=== PATIENT | male | born 1945 | race Caucasian/White ===

== ENCOUNTER → 2019-08-21 | Outpatient (CLI) | payer MEDICARE, SELFPAY | PROVIDERS: Family Provider Internal Medicine; Visit Provider Internal Medicine Hematology & Oncology | DX: Z85.46 Personal history of malignant neoplasm of prostate (principal); C68.0 Malignant neoplasm of urethra; J43.9 Emphysema, unspecified; M19.012 Primary osteoarthritis, left shoulder; M19.011 Primary osteoarthritis, right shoulder; Z90.2 Acquired absence of lung [part of]; Z79.899 Other long term (current) drug therapy; Z92.23 Personal history of estrogen therapy | CPT/HCPCS: 99213 ==

== ENCOUNTER → 2019-10-28 08:43 | Outpatient (BNVA) | payer MEDICARE, SELFPAY | PROVIDERS: Family Provider Internal Medicine; PCP Internal Medicine; Visit Provider Urology | DX: N32.89 Other specified disorders of bladder (principal); N39.9 Disorder of urinary system, unspecified; C67.2 Malignant neoplasm of lateral wall of bladder; C61 Malignant neoplasm of prostate | CPT/HCPCS: 81001 ==

== ENCOUNTER 2019-11-18 11:10 | Outpatient (CLI) | payer MEDICARE, SELFPAY ==
[2019-11-18 11:28] LABS: Basophils % 0.6 %; Eosinophils # 0.2 10^3/uL (0.0-0.8); Hematocrit 45.2 % (42.0-52.0); Hemoglobin 15.2 g/dL (11.7-16.6); Lymphocytes # 1.6 10^3/uL (0.8-4.8); Lymphocytes % 25.7 %; Mean Corpuscular HGB Conc 33.6 g/dL (30.0-36.0); Mean Corpuscular Hemoglobin 30.2 pg (28.0-34.0); Mean Corpuscular Volume 89.9 fL (80-94); Mean Platelet Volume 10.2 fL (7.4-10.4); Monocytes # 0.6 10^3/uL (0.2-0.9); Monocytes % 9.8 %; Neutrophils # 3.8 10^3/uL (1.8-7.7); Neutrophils % 60.6 %; Nucleated Red Blood Cells % 0 %; Platelet Count 224 10^3/cmm (130-400); Red Blood Count 5.03 10^6/uL (4.1-5.3); Red Cell Distribution Width 11.7 % (12.1-15.1); White Blood Count 6.3 10^3/uL (4.0-10.0)
[2019-11-18 11:51] LABS: Prostate Specific Antigen 0.39 ng/mL (0-4)
[2019-11-18 12:02] LABS: Alanine Aminotransferase 32 U/L (0-41); Albumin Level 4.3 g/dL (3.5-5.2); Alkaline Phosphatase 102 IU/L (40-130); Anion Gap 16.5 (5-19); Aspartate Amino Transferase 27 U/L (0-40); Blood Urea Nitrogen 16 mg/dL (8-23); Carbon Dioxide 25 mmol/L (22-29); Chloride 103 mmol/L (98-107); Glucose 105 mg/dL (65-115); Potassium 4.5 mmol/L (3.5-5.1); Sodium 140 mmol/L (136-145); Total Bilirubin 0.4 mg/dL (0.15-1.2); Total Protein 6.3 g/dL (6.6-8.7)
--- NOTE | 2019-11-18 15:30 | ONC FU_ITS ---
Dr. Robertson follow up note Patient: Kwaku Rivero Unit #: [id number]: [id number] Dicatated By: Guillermina Robertson M.D.Date of Visit:Nov 18, 2019 Onc Med Follow-up/Prog Note History of Present Illness: Mr. Kwaku Rivero, is a 74-year-old gentleman with history of prostate cancer diagnosed about 9 years ago at that time he underwent brachytherapy with excellent response and his last PSA was checked in December 2016 and it was normal around 2. and recently found to have multiple bilateral pulmonary nodules per CTPET, , for which he was evaluated by Dr. Batista and patient underwent left upper lobe lung resection on 11/27/2017 and final pathology report showed infiltrating adenocarcinoma consistent with prostate primary. had agreed on plan of treatment including combined androgen androgen deprivation with Casodex and Zoladex. Did not take Zoladex because of is concerned about cardiac related toxicity due to Zoladex. but later on , on 08/24 agreed to try monthly dose of zoladex and cadodex on trial basis , now tolerating well . Patient denies any testosterone supplements. CT scan of chest done on 07/11/2018 showed a right apical mass lesion with irregular margins measuring 1.5 x 1.9 x 2.2 cm and another nodule slightly posterior and medial to this lesion measured 1.1 and a cavitary lesion persist in the superior segment of left upper lobe measure 1.2 x 2.4 cm Follow-up CT scanning of chest done on 10/12/2018 showed stable left suprahilar opacity measuring 1.5 x 1.8 x 2.5 cm is unchanged and left upper lobe nodule is also unchanged measuring 1.9 x 1.1 cm whereas previously described right upper lobe nodules have improved and are small in size. No hilar or mediastinal lymphadenopathy, small esophageal hiatal hernia. Mr. Rivero has continued the Zoladex. His last Zoladex injection was 01/30/2019. He did have follow-up bone scan on 05/07/2019. He reported no evidence of metastatic disease to the bony skeleton. 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 Follow-up CT of the chest abdomen and pelvis with contrast was also obtained on 05/07/2019. There was further decreased in the size and density of the previous metastatic nodules in the right apex of the lung. Stable postoperative changes the left upper lobe lung rate no evidence of new foci or pulmonary metastatic disease. He has chronic emphysema. Resolved superior segment left lower lobe previous editorial lesion or infected bullous cavity. He has arteriosclerotic cardiovascular changes as well. CT of the abdomen and pelvis reported right posterior lateral bladder wall mass suspected urological evaluation suggested; prior radiation to the prostate gland; diverticulosis of the colon, most pronounced in the sigmoid region without radiographic evidence of diverticulitis; or chills carotid peripheral vascular changes. The area in the bladder is arising from the right posterior lateral wall of the bladder is suggestion of a foci intralumenal nodule measuring about 1.5 cm in diameter. The remainder of the urinary bladder is normal. Radiation seeds were noted within the prostate gland. with Zoladex injection He states overall he is feeling so bad due to hot sweats/flashes that are getting worse area he's had significant fatigue. He states that it's hard for him to do his normal daily activities as well as working in the [employer] shows such as he does. He states he is on the go constantly but is having more trouble with fatigue.. However his major complaint now is horrible hot flashes and sweating . He feels that this is impacting his quality of life. . He's had no urinary problems he denies any hematuria. 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 Jerome, urologist As far as prostrate cancer is concern, CT PET scan done on 08/17/2019 showed no evidence of recurrent or residual malignancy, in right apex nodule measuring roughly 7 mm is FDG negative. His left lung scarring from the wedge resection Patient wants to continue to hold off Zoladex, as he is feeling better since he is off Zoladex , feeling more energetic since he is off Zoladex. And recently underwent cystoscopy for bladder mass which showed low-grade papillary urothelial carcinoma, it was excised completely and now being treated with intravesical therapy with mitomycin and being followed by urology. Came for follow-up, denies any specific complaint except occasionally hot flashes otherwise no fever or chills, no nausea or vomiting no diarrhea constipation, appetite is good, gaining some weight. And feeling better since of ADT Medications: B Complex 1 Tablet Oral daily, Oevg-Bwtt-Cfesuy 2 Capsule Oral daily, Lipitor 1 (40 mg) Tablet Oral daily, Multivitamin Adult 1 Tablet Oral daily, plexus 1 Capsule daily Allergies: No Known Allergies. Review of Systems: Constitutional - He has been having hot flashes. He also has fatigue and low energy, ENMT - No sinus congestion/drainage. No mouth sores. No sore throat or difficulty swallowing, Hematologic/Lymphatic - No abnormal bruising or bleeding, Respiratory - No dyspnea on exertion, chest pain, cough or hemoptysis, Cardiovascular - No anginal chest pain, palpitations or orthopnea, Gastrointestinal - No nausea, vomiting, diarrhea, GI bleeding, or constipation. No change in bowel habits, no heartburn or early satiety, Genitourinary (M) - No hematuria, dysuria, increased frequency, urgency, hesitancy or incontinence, Musculoskeletal - No joint pain, swelling or redness. No decreased range of motion, Neurologic - No headache or dizziness. No numbness/paresthesias or other focal neurologic symptoms, Psychiatric - No anxiety or depression. No insomnia. Vital Signs: Performed on Nov 18, 2019 13:27 Height - 66.00 in Weight - 200.6 lbs (HIGH) BSA - 2.00 sq.m BMI - 32.38 (HIGH) Temperature - 98.0 F (LOW) Pulse - 82 /min Respiration - 18 /min BP - 138/85 mm(hg) O2 Sat - 96 % Pain - 0 Performance Status: 0 - Fully active, able to carry on all predisease activities without restrictions. (ECOG) Physical Examination: ENMT - No oral exudates, ulcers, masses, thrush or mucositis. Oropharynx clear. Tongue normal, Respiratory - Lungs are clear to auscultation without rhonchi or wheezing, Cardiovascular - Regular rate and rhythm of heart, Abdomen - Non-tender, non-distended, Good bowel sounds. No guarding or rebound tenderness. No pulsatile masses, Extremities - no edema. Lab/Imaging: Test performed on Aug 21, 2019 09:28 Sodium 142 mmol/L Testosterone, Total 2.5 ng/dL Potassium 4.4 mmol/L Chloride 104 mmol/L CO2 26 mmol/L Anion Gap 16.4 BUN 15 mg/dL Creatinine 1.0 mg/dL Cr Clearance (Est) 81.7400 mL/min Glucose 115 mg/dl Calcium 9.9 mg/dL Protein, Total 6.1 g/dL Albumin 4.9 g/dL Globulin 1.2 gm/dL Bilirubin, Total 0.5 mg/dL ALT (SGPT) 26 U/L AST (SGOT) 24 U/L Alkaline Phosphatase 90 U/L WBC 5.8 10 3/uL RBC 4.89 10 6/uL HGB 14.9 g/dL HCT 44.5 % MCV 91.0 fl MCH 30.5 pg MCHC 33.5 g/dl RDW 12.0 % Platelet Count 224 10 3/cmm MPV 10.4 fl Neutrophils 3.5 10 3/uL Lymphocytes 1.5 10 3/uL Monocytes 0.6 10 3/uL Eosinophils 0.1 10 3/uL Basophils 0.0 10 3/uL Neutrophil % 60.1 % Lymphocyte % 26.1 % Monocyte % 10.7 % Eosinophil % 1.9 % Basophils % 0.7 % PSA 0.28 ng/mL Impression: Metastatic prostrate cancer involving bilateral lungs status post left thoracoscopy with wedge resection of left upper lobe pulmonary nodule on 11/27/2017 , history of prostate cancer diagnosed about 7 years ago status post brachytherapy #2 left thoracic vent placement skin due to persistent air leak discussed with the patient and his his disease status. 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 Treatment options including combined androgen blockade with Zoladex and bicalutamide versus observation. Both were discussed in detail and the patient opted for combined androgen blockade. All the side effect and possible benefit associated with Zoladex and bicalutamide were discussed in detail and patient expressed understanding and accepted the treatment. He Started on bicalutamide on 01/01/2018. Patient was advised not to take testosterone, in any form including in multivitamins. patient was reluctant to start Zoladex and his has done research. He did not want to pursue Zoladex initially to potential side effects especially fatigue. He was agreeable to continue the Casodex. He wants to complete Casodex to a total of 30 days, then wait 1 month and recheck labs and go from there . He tolerated the Casodex well and later on 08/24/18 agreed to try monthly dose of Zoladex , Repeat CT scan of chest done on 07/11/2018 showed right apical mass lesion with irregular margins now measures 1.5 x 1.9 x 2.2 cm compared to 1.4 x 1.4 x 1.3 on 05/03/2017 And nodule slightly posterior and medial to this lesion measured 1.1 compared to 1 cm prior exam A cavitary lesion persists in the superior Segment left lower lobe, adjacent to the major fissure now measures 1.2 x 2.4 cm compared to 1.3 x 1.6 cm on prior exam, no new pulmonary nodule seen next CT abdomen pelvis shows no evidence of neoplastic process in abdominal pelvis Bone scan shows no evidence of metastatic disease he was referred to radiation oncology for evaluation for role of SB RT in metastatic lung disease, patient was seen by Dr. Vo and due to location of the pulmonary nodule, SB RT was not offered due to risks involved. Patient underwent follow-up CT scan of chest done on 10/12/2018 which showed stable left suprahilar nodule and cavitary lesion in this suprasegmental left lower lobe along the fissure is unchanged too, whereas previously described pulmonary nodules in the right upper lobe at the apex have improved and also smaller in size. No mediastinal or hilar lymphadenopathy. Small esophageal hiatal hernia. Mr. Rivero has continued the Zoladex. His last Zoladex injection was 01/30/2019. He did have follow-up bone scan on 05/07/2019. He reported no evidence of metastatic disease to the bony skeleton. 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 Follow-up CT of the chest abdomen and pelvis with contrast was also obtained on 05/07/2019. There was further decreased in the size and density of the previous metastatic nodules in the right apex of the lung. Stable postoperative changes the left upper lobe lung rate no evidence of new foci or pulmonary metastatic disease. He has chronic emphysema. Resolved superior segment left lower lobe previous editorial lesion or infected bullous cavity. He has arteriosclerotic cardiovascular changes as well. CT of the abdomen and pelvis reported right posterior lateral bladder wall mass suspected urological evaluation suggested; prior radiation to the prostate gland; diverticulosis of the colon, most pronounced in the sigmoid region without radiographic evidence of diverticulitis; or chills carotid peripheral vascular changes. The area in the bladder is arising from the right posterior lateral wall of the bladder is suggestion of a foci intralumenal nodule measuring about 1.5 cm in diameter. The remainder of the urinary bladder is normal. Ration seeds were noted within the prostate gland. Plan: Discussed with patient regarding his labs white blood count 6.3 hemoglobin 15.2 crit 45.2 platelets 224,000 CMP within normal limits PSA 0.39 compared to 0.28 on 08/21/2019 Clinically, patient is doing well with no signs symptoms suggestive of recurrence of disease. But his follow-up lab shows increase in PSA value and at this point, we'll continue to monitor and he will return to clinic in 3 months with PSA and testosterone level and PSA continued to go up, we'll consider radiological workup to assess disease status. Signed By: Guillermina Robertson M.D. <<Signature on File>>
== END 2019-11-18 11:11 | disposition home or self-care (01) ==
LOC: ONCMED 11:10
PROVIDERS: Family Provider Internal Medicine; PCP Internal Medicine; Visit Provider Internal Medicine Hematology & Oncology
DX: C61 Malignant neoplasm of prostate (principal); C78.02 Secondary malignant neoplasm of left lung; C78.01 Secondary malignant neoplasm of right lung; R97.21 Rising PSA following treatment for malignant neoplasm of prostate; K44.9 Diaphragmatic hernia without obstruction or gangrene; Z79.899 Other long term (current) drug therapy; Z92.3 Personal history of irradiation; Z90.2 Acquired absence of lung [part of]; Z85.51 Personal history of malignant neoplasm of bladder; Z92.23 Personal history of estrogen therapy
CPT/HCPCS: 80053; 84153; 85025; G0463

== ENCOUNTER 2020-02-24 14:17 | Outpatient (CLI) | payer MEDICARE, SELFPAY ==
[2020-02-24 15:17] LABS: Prostate Specific Antigen 1.71 ng/mL (0-4)
[2020-02-24 16:21] LABS: Testosterone Total 139.5 ng/dL (193-740)
--- NOTE | 2020-02-24 16:47 | ONC FU_ITS ---
Dr. Robertson follow up note Patient: Kwaku Rivero Unit #: [id number]: [id number] Dicatated By: Guillermina Robertson M.D.Date of Visit:Feb 24, 2020 Onc Med Follow-up/Prog Note History of Present Illness: Mr. Kwaku Rivero, is a 75-year-old gentleman with history of prostate cancer diagnosed about 9 years ago at that time he underwent brachytherapy with excellent response and his last PSA was checked in December 2016 and it was normal around 2. and recently found to have multiple bilateral pulmonary nodules per CTPET, , for which he was evaluated by Dr. Batista and patient underwent left upper lobe lung resection on 11/27/2017 and final pathology report showed infiltrating adenocarcinoma consistent with prostate primary. had agreed on plan of treatment including combined androgen androgen deprivation with Casodex and Zoladex. Did not take Zoladex because of is concerned about cardiac related toxicity due to Zoladex. but later on , on 08/24 agreed to try monthly dose of zoladex and cadodex on trial basis , now tolerating well . Patient denies any testosterone supplements. CT scan of chest done on 07/11/2018 showed a right apical mass lesion with irregular margins measuring 1.5 x 1.9 x 2.2 cm and another nodule slightly posterior and medial to this lesion measured 1.1 and a cavitary lesion persist in the superior segment of left upper lobe measure 1.2 x 2.4 cm Follow-up CT scanning of chest done on 10/12/2018 showed stable left suprahilar opacity measuring 1.5 x 1.8 x 2.5 cm is unchanged and left upper lobe nodule is also unchanged measuring 1.9 x 1.1 cm whereas previously described right upper lobe nodules have improved and are small in size. No hilar or mediastinal lymphadenopathy, small esophageal hiatal hernia. Mr. Rivero has continued the Zoladex. His last Zoladex injection was 01/30/2019. He did have follow-up bone scan on 05/07/2019. He reported no evidence of metastatic disease to the bony skeleton. 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 Follow-up CT of the chest abdomen and pelvis with contrast was also obtained on 05/07/2019. There was further decreased in the size and density of the previous metastatic nodules in the right apex of the lung. Stable postoperative changes the left upper lobe lung rate no evidence of new foci or pulmonary metastatic disease. He has chronic emphysema. Resolved superior segment left lower lobe previous editorial lesion or infected bullous cavity. He has arteriosclerotic cardiovascular changes as well. CT of the abdomen and pelvis reported right posterior lateral bladder wall mass suspected urological evaluation suggested; prior radiation to the prostate gland; diverticulosis of the colon, most pronounced in the sigmoid region without radiographic evidence of diverticulitis; or chills carotid peripheral vascular changes. The area in the bladder is arising from the right posterior lateral wall of the bladder is suggestion of a foci intralumenal nodule measuring about 1.5 cm in diameter. The remainder of the urinary bladder is normal. Radiation seeds were noted within the prostate gland. with Zoladex injection He states overall he is feeling so bad due to hot sweats/flashes that are getting worse area he's had significant fatigue. 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 He states he is on the go constantly but is having more trouble with fatigue.. However his major complaint now is horrible hot flashes and sweating . He feels that this is impacting his quality of life. . He's had no urinary problems he denies any hematuria. 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 Jerome, urologist As far as prostrate cancer is concern, CT PET scan done on 08/17/2019 showed no evidence of recurrent or residual malignancy, in right apex nodule measuring roughly 7 mm is FDG negative. His left lung scarring from the wedge resection Patient wants to continue to hold off Zoladex, as he is feeling better since he is off Zoladex , feeling more energetic since he is off Zoladex. And recently underwent cystoscopy for bladder mass which showed low-grade papillary urothelial carcinoma, it was excised completely and now being treated with intravesical therapy with mitomycin and being followed by urology. Came for follow-up, denies any specific complaints except generalized weakness and fatigue, no dysuria or hematuria, no pelvic pain, no new bony pains, no hemoptysis or hematemesis. Patient is gaining weight. Recently has seen his primary care physician in [place] . Medications: Utxg-Klmo-Njzaeq 2 Capsule Oral daily, Lipitor 1 (40 mg) Tablet Oral daily, Multivitamin Adult 1 Tablet Oral daily, plexus 1 Capsule daily Allergies: No Known Allergies. Review of Systems: Constitutional - Appetite is good and weight stable. Energy level poor. Positive for hot flashes, night sweats. No fever, chills, ENMT - No sinus congestion/drainage. No mouth sores. No sore throat or difficulty swallowing, Hematologic/Lymphatic - No abnormal bruising or bleeding, Respiratory - No dyspnea on exertion, chest pain, cough or hemoptysis, Cardiovascular - No anginal chest pain, palpitations or orthopnea, Gastrointestinal - No nausea, vomiting, diarrhea, GI bleeding, or constipation. No change in bowel habits, no heartburn or early satiety, Genitourinary (M) - No hematuria, dysuria, increased frequency, urgency, hesitancy or incontinence, Musculoskeletal - No joint pain, swelling or redness. No decreased range of motion, Neurologic - No headache or dizziness. No numbness/paresthesias or other focal neurologic symptoms, Psychiatric - No anxiety or depression. No insomnia. Vital Signs: Performed on Feb 24, 2020 16:02 Height - 66.00 in Weight - 202.4 lbs (HIGH) BSA - 2.01 sq.m BMI - 32.67 (HIGH) Temperature - 97.8 F (LOW) Pulse - 75 /min Respiration - 16 /min BP - 140/89 mm(hg) O2 Sat - 95 % (LOW) Pain - 0 Performance Status: 0 - Fully active, able to carry on all predisease activities without restrictions. (ECOG) Physical Examination: ENMT - no mouth sores, no thrush, Respiratory - Lungs are clear, Cardiovascular - Regular rate and rhythm of heart, Abdomen - soft, bowel sounds present, Extremities - no visible edema. Lab/Imaging: Test performed on Nov 18, 2019 11:20 Sodium 140 mmol/L Potassium 4.5 mmol/L Chloride 103 mmol/L CO2 25 mmol/L Anion Gap 16.5 BUN 16 mg/dL Creatinine 1.1 mg/dL Cr Clearance (Est) 74.68 mL/min Glucose 105 mg/dL Calcium 10.0 mg/dL Protein, Total 6.3 g/dL Albumin 4.3 g/dL Globulin 2.0 g/dL Bilirubin, Total 0.4 mg/dL ALT (SGPT) 32 U/L AST (SGOT) 27 U/L Alkaline Phosphatase 102 IU/L WBC 6.3 10 3/uL RBC 5.03 10 6/uL HGB 15.2 g/dL HCT 45.2 % MCV 89.9 fL MCH 30.2 pg MCHC 33.6 g/dL RDW 11.7 % Platelet Count 224 10 3/cmm MPV 10.2 fL Neutrophils 3.8 10 3/uL Lymphocytes 1.6 10 3/uL Monocytes 0.6 10 3/uL Eosinophils 0.2 10 3/uL Basophils 0.0 10 3/uL Neutrophil % 60.6 % Lymphocyte % 25.7 % Monocyte % 9.8 % Eosinophil % 3.0 % Basophils % 0.6 % PSA 0.39 ng/mL Impression: Metastatic prostrate cancer involving bilateral lungs status post left thoracoscopy with wedge resection of left upper lobe pulmonary nodule on 11/27/2017 , history of prostate cancer diagnosed about 7 years ago status post brachytherapy #2 left thoracic vent placement skin due to persistent air leak discussed with the patient and his his disease status. 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 Treatment options including combined androgen blockade with Zoladex and bicalutamide versus observation. Both were discussed in detail and the patient opted for combined androgen blockade. All the side effect and possible benefit associated with Zoladex and bicalutamide were discussed in detail and patient expressed understanding and accepted the treatment. He Started on bicalutamide on 01/01/2018. Patient was advised not to take testosterone, in any form including in multivitamins. patient was reluctant to start Zoladex and his has done research. He did not want to pursue Zoladex initially to potential side effects especially fatigue. He was agreeable to continue the Casodex. He wants to complete Casodex to a total of 30 days, then wait 1 month and recheck labs and go from there . He tolerated the Casodex well and later on 08/24/18 agreed to try monthly dose of Zoladex , Repeat CT scan of chest done on 07/11/2018 showed right apical mass lesion with irregular margins now measures 1.5 x 1.9 x 2.2 cm compared to 1.4 x 1.4 x 1.3 on 05/03/2017 And nodule slightly posterior and medial to this lesion measured 1.1 compared to 1 cm prior exam A cavitary lesion persists in the superior Segment left lower lobe, adjacent to the major fissure now measures 1.2 x 2.4 cm compared to 1.3 x 1.6 cm on prior exam, no new pulmonary nodule seen next CT abdomen pelvis shows no evidence of neoplastic process in abdominal pelvis Bone scan shows no evidence of metastatic disease he was referred to radiation oncology for evaluation for role of SB RT in metastatic lung disease, patient was seen by Dr. Vo and due to location of the pulmonary nodule, SB RT was not offered due to risks involved. Patient underwent follow-up CT scan of chest done on 10/12/2018 which showed stable left suprahilar nodule and cavitary lesion in this suprasegmental left lower lobe along the fissure is unchanged too, whereas previously described pulmonary nodules in the right upper lobe at the apex have improved and also smaller in size. No mediastinal or hilar lymphadenopathy. Small esophageal hiatal hernia. Mr. Rivero has continued the Zoladex. His last Zoladex injection was 01/30/2019. He did have follow-up bone scan on 05/07/2019. He reported no evidence of metastatic disease to the bony skeleton. 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 Follow-up CT of the chest abdomen and pelvis with contrast was also obtained on 05/07/2019. There was further decreased in the size and density of the previous metastatic nodules in the right apex of the lung. Stable postoperative changes the left upper lobe lung rate no evidence of new foci or pulmonary metastatic disease. He has chronic emphysema. Resolved superior segment left lower lobe previous editorial lesion or infected bullous cavity. He has arteriosclerotic cardiovascular changes as well. CT of the abdomen and pelvis reported right posterior lateral bladder wall mass suspected urological evaluation suggested; prior radiation to the prostate gland; diverticulosis of the colon, most pronounced in the sigmoid region without radiographic evidence of diverticulitis; or chills carotid peripheral vascular changes. The area in the bladder is arising from the right posterior lateral wall of the bladder is suggestion of a foci intralumenal nodule measuring about 1.5 cm in diameter. The remainder of the urinary bladder is normal. Ration seeds were noted within the prostate gland. Plan: Discussed with patient regarding his labs PSA 1.71 compared to 0.39 on 11/18/2019 Clinically, patient is doing well, with no new signs symptom suggestive of disease progression but his PSA has gone up significantly since last visit, At this point we will repeat his PSA in one month and if it continued to go up then will consider CT PET scan to assess disease status if it shows radiological evidence of disease progression then will consider starting him on androgen deprivation therapy. Return to clinic in one month with PSA Signed By: Guillermina Robertson M.D. <<Signature on File>>
== END 2020-02-24 14:18 | disposition home or self-care (01) ==
LOC: ONCMED 14:20
PROVIDERS: Family Provider Internal Medicine; PCP Internal Medicine; Visit Provider Internal Medicine Hematology & Oncology
DX: Z08 Encounter for follow-up examination after completed treatment for malignant neoplasm (principal); Z85.46 Personal history of malignant neoplasm of prostate; R97.21 Rising PSA following treatment for malignant neoplasm of prostate; F41.9 Anxiety disorder, unspecified; E78.00 Pure hypercholesterolemia, unspecified; Z92.21 Personal history of antineoplastic chemotherapy; Z79.899 Other long term (current) drug therapy
CPT/HCPCS: 36415; 84153; 84403; 99214

== ENCOUNTER → 2020-02-25 09:00 | Outpatient (BNVA) | payer MEDICARE, SELFPAY | PROVIDERS: Family Provider Internal Medicine; PCP Internal Medicine; Visit Provider Urology | DX: C67.2 Malignant neoplasm of lateral wall of bladder (principal); C61 Malignant neoplasm of prostate | CPT/HCPCS: 81001 ==

== ENCOUNTER 2020-04-06 07:47 | Outpatient (CLI) | payer MEDICARE, SELFPAY ==
--- NOTE | 2020-04-06 16:12 | ONC FU_ITS ---
Dr. Robertson follow up note Patient: Kwaku Rivero Unit #: [id number]: 1945 Dicatated By: Guillermina Robertson M.D.Date of Visit:Apr 06, 2020 Onc Med Follow-up/Prog Note History of Present Illness: Mr. Kwaku Rivero, is a 75-year-old gentleman with history of prostate cancer diagnosed about 9 years ago at that time he underwent brachytherapy with excellent response and his last PSA was checked in December 2016 and it was normal around 2. and recently found to have multiple bilateral pulmonary nodules per CTPET, , for which he was evaluated by Dr. Batista and patient underwent left upper lobe lung resection on 11/27/2017 and final pathology report showed infiltrating adenocarcinoma consistent with prostate primary. had agreed on plan of treatment including combined androgen androgen deprivation with Casodex and Zoladex. but later on decided not to take Zoladex because of his concern about cardiac related toxicity due to Zoladex. but later on , on 08/24 agreed to try monthly dose of zoladex and casodex on trial basis , . Patient denied taking any testosterone supplements. f/u CT scan of chest done on 07/11/2018 showed a right apical mass lesion with irregular margins measuring 1.5 x 1.9 x 2.2 cm and another nodule slightly posterior and medial to this lesion measured 1.1 and a cavitary lesion persist in the superior segment of left upper lobe measure 1.2 x 2.4 cm Follow-up CT scanning of chest done on 10/12/2018 showed stable left suprahilar opacity measuring 1.5 x 1.8 x 2.5 cm is unchanged and left upper lobe nodule is also unchanged measuring 1.9 x 1.1 cm whereas previously described right upper lobe nodules have improved and are small in size. No hilar or mediastinal lymphadenopathy, small esophageal hiatal hernia. Mr. Rivero has continued the Zoladex. His last Zoladex injection was 01/30/2019 He states overall he feels so bad due to hot sweats/flashes that are getting worse area he's had significant fatigue. 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 He states he is on the go constantly but is having more trouble with fatigue.. However his major complaint now is horrible hot flashes and sweating . He feels that this is impacting his quality of life. . He's had no urinary problems he denies any hematuria. And wants to hold Zoladex for the time being He did have follow-up bone scan on 05/07/2019. He reported no evidence of metastatic disease to the bony skeleton. 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 Follow-up CT of the chest abdomen and pelvis with contrast was also obtained on 05/07/2019. There was further decreased in the size and density of the previous metastatic nodules in the right apex of the lung. Stable postoperative changes the left upper lobe lung rate no evidence of new foci or pulmonary metastatic disease. He has chronic emphysema. Resolved superior segment left lower lobe previous editorial lesion or infected bullous cavity. He has arteriosclerotic cardiovascular changes as well. CT of the abdomen and pelvis reported right posterior lateral bladder wall mass suspected urological evaluation suggested; prior radiation to the prostate gland; diverticulosis of the colon, most pronounced in the sigmoid region without radiographic evidence of diverticulitis; or chills carotid peripheral vascular changes. The area in the bladder is arising from the right posterior lateral wall of the bladder is suggestion of a foci intralumenal nodule measuring about 1.5 cm in diameter. The remainder of the urinary bladder is normal. Radiation seeds were noted within the prostate gland. for which on 07/11/2019 he underwent TURBT/biopsy which showed papillary urothelial carcinoma, low-grade, grade 1, no muscle invasion seen patient underwent intravesical therapy with mitomycin on 07/11/2019 and follow-up scheduled in [address] Jerome, urologist As far as prostrate cancer is concern, CT PET scan done on 08/17/2019 showed no evidence of recurrent or residual malignancy, in right apex nodule measuring roughly 7 mm is FDG negative. His left lung scarring from the wedge resection Came for follow-up, denies any specific complaint except off and on hot flashes reason unknown, no fever chills, no diarrhea constipation, no hematuria no dysuria, no new bony pains, no hemoptysis or hematemesis, appetite is good. Medications: [id number] 2 Capsule Oral daily, Lipitor 1 (40 mg) Tablet Oral daily, Multivitamin Adult 1 Tablet Oral daily, plexus 1 Capsule daily Allergies: No Known Allergies. Review of Systems: Constitutional - Appetite is good and weight stable. Energy level poor. Positive for hot flashes, night sweats. No fever, chills, ENMT - No sinus congestion/drainage. No mouth sores. No sore throat or difficulty swallowing, Hematologic/Lymphatic - No abnormal bruising or bleeding, Respiratory - No dyspnea on exertion, chest pain, cough or hemoptysis, Cardiovascular - No anginal chest pain, palpitations or orthopnea, Gastrointestinal - No nausea, vomiting, diarrhea, GI bleeding, or constipation. No change in bowel habits, no heartburn or early satiety, Genitourinary (M) - No hematuria, dysuria, increased frequency, urgency, hesitancy or incontinence, Musculoskeletal - No joint pain, swelling or redness. No decreased range of motion, Neurologic - No headache or dizziness. No numbness/paresthesias or other focal neurologic symptoms, Psychiatric - No anxiety or depression. No insomnia. Vital Signs: Performed on Apr 06, 2020 10:22 Height - 66.00 in Weight - 205.2 lbs (HIGH) BSA - 2.02 sq.m BMI - 33.12 (HIGH) Temperature - 98.0 F (LOW) Pulse - 71 /min Respiration - 18 /min BP - 132/92 mm(hg) O2 Sat - 95 % (LOW) Pain - 0 Performance Status: 0 - Fully active, able to carry on all predisease activities without restrictions. (ECOG) Physical Examination: ENMT - No mouth sores no thrush no jaundice, Respiratory - Lungs are clear, Cardiovascular - Regular rate and rhythm of heart, Abdomen - Soft, bowel sounds present, Extremities - No visible edema. Lab/Imaging: Test performed on Feb 24, 2020 14:30 Testosterone, Total 139.5 ng/dL PSA 1.71 ng/mL Test performed on Nov 18, 2019 11:20 Sodium 140 mmol/L Potassium 4.5 mmol/L Chloride 103 mmol/L CO2 25 mmol/L Anion Gap 16.5 BUN 16 mg/dL Creatinine 1.1 mg/dL Cr Clearance (Est) 74.68 mL/min Glucose 105 mg/dL Calcium 10.0 mg/dL Protein, Total 6.3 g/dL Albumin 4.3 g/dL Globulin 2.0 g/dL Bilirubin, Total 0.4 mg/dL ALT (SGPT) 32 U/L AST (SGOT) 27 U/L Alkaline Phosphatase 102 IU/L WBC 6.3 10 3/uL RBC 5.03 10 6/uL HGB 15.2 g/dL HCT 45.2 % MCV 89.9 fL MCH 30.2 pg MCHC 33.6 g/dL RDW 11.7 % Platelet Count 224 10 3/cmm MPV 10.2 fL Neutrophils 3.8 10 3/uL Lymphocytes 1.6 10 3/uL Monocytes 0.6 10 3/uL Eosinophils 0.2 10 3/uL Basophils 0.0 10 3/uL Neutrophil % 60.6 % Lymphocyte % 25.7 % Monocyte % 9.8 % Eosinophil % 3.0 % Basophils % 0.6 % Impression: Metastatic prostrate cancer involving bilateral lungs status post left thoracoscopy with wedge resection of left upper lobe pulmonary nodule on 11/27/2017 , history of prostate cancer diagnosed about 7 years ago status post brachytherapy #2 left thoracic vent placement skin due to persistent air leak discussed with the patient and his his disease status. 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 Treatment options including combined androgen blockade with Zoladex and bicalutamide versus observation. Both were discussed in detail and the patient opted for combined androgen blockade. All the side effect and possible benefit associated with Zoladex and bicalutamide were discussed in detail and patient expressed understanding and accepted the treatment. He Started on bicalutamide on 01/01/2018. Patient was advised not to take testosterone, in any form including in multivitamins. patient was reluctant to start Zoladex and his has done research. He did not want to pursue Zoladex initially to potential side effects especially fatigue. He was agreeable to continue the Casodex. He wants to complete Casodex to a total of 30 days, then wait 1 month and recheck labs and go from there . He tolerated the Casodex well and later on 08/24/18 agreed to try monthly dose of Zoladex , Which she continued till January 30, 2019 when he took his last dose now after that decided to stop ADT due to related side effects e.g. hot flashes, generalized weakness and fatigue interfering day-to-day activity. Repeat CT scan of chest done on 07/11/2018 showed right apical mass lesion with irregular margins now measures 1.5 x 1.9 x 2.2 cm compared to 1.4 x 1.4 x 1.3 on 05/03/2017 And nodule slightly posterior and medial to this lesion measured 1.1 compared to 1 cm prior exam A cavitary lesion persists in the superior Segment left lower lobe, adjacent to the major fissure now measures 1.2 x 2.4 cm compared to 1.3 x 1.6 cm on prior exam, no new pulmonary nodule seen next CT abdomen pelvis shows no evidence of neoplastic process in abdominal pelvis Bone scan shows no evidence of metastatic disease he was referred to radiation oncology for evaluation for role of SB RT in metastatic lung disease, patient was seen by Dr. Vo and due to location of the pulmonary nodule, SB RT was not offered due to risks involved. Patient underwent follow-up CT scan of chest done on 10/12/2018 which showed stable left suprahilar nodule and cavitary lesion in this suprasegmental left lower lobe along the fissure is unchanged too, whereas previously described pulmonary nodules in the right upper lobe at the apex have improved and also smaller in size. No mediastinal or hilar lymphadenopathy. Small esophageal hiatal hernia. Mr. Rivero has continued the Zoladex. His last Zoladex injection was 01/30/2019. He did have follow-up bone scan on 05/07/2019. He reported no evidence of metastatic disease to the bony skeleton. 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 Follow-up CT of the chest abdomen and pelvis with contrast was also obtained on 05/07/2019. There was further decreased in the size and density of the previous metastatic nodules in the right apex of the lung. Stable postoperative changes the left upper lobe lung rate no evidence of new foci or pulmonary metastatic disease. He has chronic emphysema. Resolved superior segment left lower lobe previous editorial lesion or infected bullous cavity. He has arteriosclerotic cardiovascular changes as well. CT of the abdomen and pelvis reported right posterior lateral bladder wall mass suspected urological evaluation suggested; prior radiation to the prostate gland; diverticulosis of the colon, most pronounced in the sigmoid region without radiographic evidence of diverticulitis; or chills carotid peripheral vascular changes. The area in the bladder is arising from the right posterior lateral wall of the bladder is suggestion of a foci intralumenal nodule measuring about 1.5 cm in diameter. The remainder of the urinary bladder is normal. Ration seeds were noted within the prostate gland.On July 11, 2019 he underwent TURBT/biopsy which showed papillary urothelial carcinoma, low-grade, grade 1, no muscle invasion seen patient underwent intravesical therapy with mitomycin on July 11, 2019 and then a follow-up planned with urology Dr. Jerome Plan: Discussed with patient regarding his labs PSA 3.570 compared to 1.71 on February 24, 2020 and 0.39 on November 18, 2019 Clinically, patient has no new signs symptom suggestive of disease progression but his PSA continues to go up and since his last visit on February 24, 2020 his PSA has doubled up within 6 weeks, at this point will consider choline CT PET scan to assess disease status and to identify surgically/or with SBRT manageable foci of disease on the other hand if patient has multifocal disease then we may consider restarting ADT with short course of Casodex to prevent tumor flare with Zoladex or degarelix without Casodex Patient return to clinic after choline CT PET scan with PSA testosterone and CBC CMP Signed By: Guillermina Robertson M.D. <<Signature on File>>
== END 2020-04-06 07:48 | disposition home or self-care (01) ==
LOC: ONCMED 07:50
PROVIDERS: PCP Internal Medicine; Visit Provider Internal Medicine Hematology & Oncology
DX: Z08 Encounter for follow-up examination after completed treatment for malignant neoplasm (principal); Z85.46 Personal history of malignant neoplasm of prostate; R97.21 Rising PSA following treatment for malignant neoplasm of prostate; F41.9 Anxiety disorder, unspecified; E78.00 Pure hypercholesterolemia, unspecified
CPT/HCPCS: 84153; 99214

== ENCOUNTER 2020-05-11 08:28 | Outpatient (CLI) | payer MEDICARE, SELFPAY ==
[2020-05-11 10:14] LABS: Testosterone Total 297.4 ng/dL (193-740)
--- NOTE | 2020-05-12 19:06 | ONC FU_ITS ---
Dr. Robertson follow up note Patient: Kwaku Rivero Unit #: [id number]: [id number] Dicatated By: Guillermina Robertson M.D.Date of Visit:May 11, 2020 Onc Med Follow-up/Prog Note History of Present Illness: Mr. Kwaku Rivero, is a 75-year-old gentleman with history of prostate cancer diagnosed about 9 years ago at that time he underwent brachytherapy with excellent response and his last PSA was checked in December 2016 and it was normal around 2. and recently found to have multiple bilateral pulmonary nodules per CTPET, , for which he was evaluated by Dr. Batista and patient underwent left upper lobe lung resection on 11/27/2017 and final pathology report showed infiltrating adenocarcinoma consistent with prostate primary. had agreed on plan of treatment including combined androgen androgen deprivation with Casodex and Zoladex. but later on decided not to take Zoladex because of his concern about cardiac related toxicity due to Zoladex. but later on , on 08/24 agreed to try monthly dose of zoladex and casodex on trial basis , . Patient denied taking any testosterone supplements. f/u CT scan of chest done on 07/11/2018 showed a right apical mass lesion with irregular margins measuring 1.5 x 1.9 x 2.2 cm and another nodule slightly posterior and medial to this lesion measured 1.1 and a cavitary lesion persist in the superior segment of left upper lobe measure 1.2 x 2.4 cm Follow-up CT scanning of chest done on 10/12/2018 showed stable left suprahilar opacity measuring 1.5 x 1.8 x 2.5 cm is unchanged and left upper lobe nodule is also unchanged measuring 1.9 x 1.1 cm whereas previously described right upper lobe nodules have improved and are small in size. No hilar or mediastinal lymphadenopathy, small esophageal hiatal hernia. Mr. Rivero has continued the Zoladex. His last Zoladex injection was 01/30/2019 He states overall he feels so bad due to hot sweats/flashes that are getting worse area he's had significant fatigue. 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 He states he is on the go constantly but is having more trouble with fatigue.. However his major complaint now is horrible hot flashes and sweating . He feels that this is impacting his quality of life. . He's had no urinary problems he denies any hematuria. And wants to hold Zoladex for the time being He did have follow-up bone scan on 05/07/2019. He reported no evidence of metastatic disease to the bony skeleton. 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 Follow-up CT of the chest abdomen and pelvis with contrast was also obtained on 05/07/2019. There was further decreased in the size and density of the previous metastatic nodules in the right apex of the lung. Stable postoperative changes the left upper lobe lung rate no evidence of new foci or pulmonary metastatic disease. He has chronic emphysema. Resolved superior segment left lower lobe previous editorial lesion or infected bullous cavity. He has arteriosclerotic cardiovascular changes as well. CT of the abdomen and pelvis reported right posterior lateral bladder wall mass suspected urological evaluation suggested; prior radiation to the prostate gland; diverticulosis of the colon, most pronounced in the sigmoid region without radiographic evidence of diverticulitis; or chills carotid peripheral vascular changes. The area in the bladder is arising from the right posterior lateral wall of the bladder is suggestion of a foci intralumenal nodule measuring about 1.5 cm in diameter. The remainder of the urinary bladder is normal. Radiation seeds were noted within the prostate gland. for which on 07/11/2019 he underwent TURBT/biopsy which showed papillary urothelial carcinoma, low-grade, grade 1, no muscle invasion seen patient underwent intravesical therapy with mitomycin on 07/11/2019 and follow-up scheduled in [address] Jerome, urologist As far as prostrate cancer is concern, CT PET scan done on 08/17/2019 showed no evidence of recurrent or residual malignancy, in right apex nodule measuring roughly 7 mm is FDG negative. His left lung scarring from the wedge resection Came for follow-up, denies any specific complaint other feeling much better, more energetic, enjoying quality of life. Patient was referred to [facility] for [facility] CT PET scan patient rescheduled it for June 10, 2020. Denies any dysuria or hematuria denies any new bony pains denies any hemoptysis or hematemesis, appetite is good. Medications: [id number] 2 Capsule Oral daily, Lipitor 1 (40 mg) Tablet Oral daily, Multivitamin Adult 1 Tablet Oral daily, plexus 1 Capsule daily Allergies: No Known Allergies. Review of Systems: Constitutional - Appetite is good and weight stable. Energy level poor. Positive for hot flashes, night sweats. No fever, chills, ENMT - No sinus congestion/drainage. No mouth sores. No sore throat or difficulty swallowing, Hematologic/Lymphatic - No abnormal bruising or bleeding, Respiratory - No dyspnea on exertion, chest pain, cough or hemoptysis, Cardiovascular - No anginal chest pain, palpitations or orthopnea, Gastrointestinal - No nausea, vomiting, diarrhea, GI bleeding, or constipation. No change in bowel habits, no heartburn or early satiety, Genitourinary (M) - No hematuria, dysuria, increased frequency, urgency, hesitancy or incontinence, Musculoskeletal - No joint pain, swelling or redness. No decreased range of motion, Neurologic - No headache or dizziness. No numbness/paresthesias or other focal neurologic symptoms, Psychiatric - No anxiety or depression. No insomnia. Vital Signs: Performed on May 11, 2020 10:40 Height - 66.00 in Weight - 202.8 lbs (LOW) BSA - 2.01 sq.m BMI - 32.73 (HIGH) Temperature - 98.1 F (LOW) Pulse - 75 /min Respiration - 20 /min BP - 176/82 mm(hg) (HIGH) O2 Sat - 96 % Pain - 0 Performance Status: 0 - Fully active, able to carry on all predisease activities without restrictions. (ECOG) Physical Examination: ENMT - No mouth sores, no thrush, no jaundice, Respiratory - Lungs are clear, Cardiovascular - Regular rate and rhythm of heart, Abdomen - Soft, bowel sounds present, Extremities - No visible edema. Lab/Imaging: Test performed on May 11, 2020 08:45 Testosterone, Total 297.4 ng/dL PSA 5.010 ng/mL Test performed on Nov 18, 2019 11:20 Sodium 140 mmol/L Potassium 4.5 mmol/L Chloride 103 mmol/L CO2 25 mmol/L Anion Gap 16.5 BUN 16 mg/dL Creatinine 1.1 mg/dL Cr Clearance (Est) 74.68 mL/min Glucose 105 mg/dL Calcium 10.0 mg/dL Protein, Total 6.3 g/dL Albumin 4.3 g/dL Globulin 2.0 g/dL Bilirubin, Total 0.4 mg/dL ALT (SGPT) 32 U/L AST (SGOT) 27 U/L Alkaline Phosphatase 102 IU/L WBC 6.3 10 3/uL RBC 5.03 10 6/uL HGB 15.2 g/dL HCT 45.2 % MCV 89.9 fL MCH 30.2 pg MCHC 33.6 g/dL RDW 11.7 % Platelet Count 224 10 3/cmm MPV 10.2 fL Neutrophils 3.8 10 3/uL Lymphocytes 1.6 10 3/uL Monocytes 0.6 10 3/uL Eosinophils 0.2 10 3/uL Basophils 0.0 10 3/uL Neutrophil % 60.6 % Lymphocyte % 25.7 % Monocyte % 9.8 % Eosinophil % 3.0 % Basophils % 0.6 % Impression: Metastatic prostrate cancer involving bilateral lungs status post left thoracoscopy with wedge resection of left upper lobe pulmonary nodule on 11/27/2017 , history of prostate cancer diagnosed about 7 years ago status post brachytherapy #2 left thoracic vent placement skin due to persistent air leak discussed with the patient and his his disease status. 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 Treatment options including combined androgen blockade with Zoladex and bicalutamide versus observation. Both were discussed in detail and the patient opted for combined androgen blockade. All the side effect and possible benefit associated with Zoladex and bicalutamide were discussed in detail and patient expressed understanding and accepted the treatment. He Started on bicalutamide on 01/01/2018. Patient was advised not to take testosterone, in any form including in multivitamins. patient was reluctant to start Zoladex and his has done research. He did not want to pursue Zoladex initially to potential side effects especially fatigue. He was agreeable to continue the Casodex. He wants to complete Casodex to a total of 30 days, then wait 1 month and recheck labs and go from there . He tolerated the Casodex well and later on 08/24/18 agreed to try monthly dose of Zoladex , Which she continued till January 30, 2019 when he took his last dose now after that decided to stop ADT due to related side effects e.g. hot flashes, generalized weakness and fatigue interfering day-to-day activity. Repeat CT scan of chest done on 07/11/2018 showed right apical mass lesion with irregular margins now measures 1.5 x 1.9 x 2.2 cm compared to 1.4 x 1.4 x 1.3 on 05/03/2017 And nodule slightly posterior and medial to this lesion measured 1.1 compared to 1 cm prior exam A cavitary lesion persists in the superior Segment left lower lobe, adjacent to the major fissure now measures 1.2 x 2.4 cm compared to 1.3 x 1.6 cm on prior exam, no new pulmonary nodule seen next CT abdomen pelvis shows no evidence of neoplastic process in abdominal pelvis Bone scan shows no evidence of metastatic disease he was referred to radiation oncology for evaluation for role of SB RT in metastatic lung disease, patient was seen by Dr. Vo and due to location of the pulmonary nodule, SB RT was not offered due to risks involved. Patient underwent follow-up CT scan of chest done on 10/12/2018 which showed stable left suprahilar nodule and cavitary lesion in this suprasegmental left lower lobe along the fissure is unchanged too, whereas previously described pulmonary nodules in the right upper lobe at the apex have improved and also smaller in size. No mediastinal or hilar lymphadenopathy. Small esophageal hiatal hernia. Mr. Rivero has continued the Zoladex. His last Zoladex injection was 01/30/2019. He did have follow-up bone scan on 05/07/2019. He reported no evidence of metastatic disease to the bony skeleton. 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 Follow-up CT of the chest abdomen and pelvis with contrast was also obtained on 05/07/2019. There was further decreased in the size and density of the previous metastatic nodules in the right apex of the lung. Stable postoperative changes the left upper lobe lung rate no evidence of new foci or pulmonary metastatic disease. He has chronic emphysema. Resolved superior segment left lower lobe previous editorial lesion or infected bullous cavity. He has arteriosclerotic cardiovascular changes as well. CT of the abdomen and pelvis reported right posterior lateral bladder wall mass suspected urological evaluation suggested; prior radiation to the prostate gland; diverticulosis of the colon, most pronounced in the sigmoid region without radiographic evidence of diverticulitis; or chills carotid peripheral vascular changes. The area in the bladder is arising from the right posterior lateral wall of the bladder is suggestion of a foci intralumenal nodule measuring about 1.5 cm in diameter. The remainder of the urinary bladder is normal. Ration seeds were noted within the prostate gland.On July 11, 2019 he underwent TURBT/biopsy which showed papillary urothelial carcinoma, low-grade, grade 1, no muscle invasion seen patient underwent intravesical therapy with mitomycin on July 11, 2019 and then a follow-up planned with urology Dr. Jerome Plan: Discussed with patient regarding his labs, testosterone 297.4, compared to 139.5 on February 24, 2020 and 2.5 on August 21, 2019 and PSA is 5.01 compared to 3.57 on April 06, 2020 and 1.71 on February 24, 2020 Clinically, patient is doing well with no new signs symptoms but his PSA continues to go up, patient denies any testosterone supplements but his testosterone levels shows significant jump from 139.5 on February 24, 2020 and now 297.4 today patient was supposed to get his choline CT PET scan done prior to this visit but he did reschedule it because of personal reasons, now even considering postponing it. Patient was advised to get his choline CT PET scan done, if it shows single or less than 3 active lesions, then we can discuss with radiation oncology regarding role of SBRT and then monitor as patient is not interested in hormonal therapy because of related side effects. Patient said he would consider scan and he will return to clinic 1 week after scan is done Signed By: Guillermina Robertson M.D. <<Signature on File>>
== END 2020-05-11 08:29 | disposition home or self-care (01) ==
PROVIDERS: PCP Internal Medicine; Visit Provider Internal Medicine Hematology & Oncology
DX: Z08 Encounter for follow-up examination after completed treatment for malignant neoplasm (principal); R97.21 Rising PSA following treatment for malignant neoplasm of prostate; Z85.46 Personal history of malignant neoplasm of prostate; F41.9 Anxiety disorder, unspecified; E78.00 Pure hypercholesterolemia, unspecified
CPT/HCPCS: 36415; 84153; 84403; 99214

== ENCOUNTER → 2020-05-20 15:16 | Outpatient (BNVA) | payer MEDICARE, SELFPAY | PROVIDERS: PCP Internal Medicine; Visit Provider Urology | DX: C67.2 Malignant neoplasm of lateral wall of bladder (principal) | CPT/HCPCS: 81001 ==

== ENCOUNTER 2020-06-19 07:56 | Outpatient (CLI) | payer MEDICARE, SELFPAY ==
--- NOTE | 2020-06-19 12:13 | ONC FU_ITS ---
Dr. Robertson follow up note Patient: Kwaku Rivero Unit #: [id number]: 1945 Dicatated By: Guillermina Robertson M.D.Date of Visit:Jun 19, 2020 Onc Med Follow-up/Prog Note History of Present Illness: Mr. Kwaku Rivero, is a 75-year-old gentleman with history of prostate cancer diagnosed about 9 years ago at that time he underwent brachytherapy with excellent response and his last PSA was checked in December 2016 and it was normal around 2. and recently found to have multiple bilateral pulmonary nodules per CTPET, , for which he was evaluated by Dr. Batista and patient underwent left upper lobe lung resection on 11/27/2017 and final pathology report showed infiltrating adenocarcinoma consistent with prostate primary. had agreed on plan of treatment including combined androgen androgen deprivation with Casodex and Zoladex. but later on decided not to take Zoladex because of his concern about cardiac related toxicity due to Zoladex. but later on , on 08/24 agreed to try monthly dose of zoladex and casodex on trial basis , . Patient denied taking any testosterone supplements. f/u CT scan of chest done on 07/11/2018 showed a right apical mass lesion with irregular margins measuring 1.5 x 1.9 x 2.2 cm and another nodule slightly posterior and medial to this lesion measured 1.1 and a cavitary lesion persist in the superior segment of left upper lobe measure 1.2 x 2.4 cm Follow-up CT scanning of chest done on 10/12/2018 showed stable left suprahilar opacity measuring 1.5 x 1.8 x 2.5 cm is unchanged and left upper lobe nodule is also unchanged measuring 1.9 x 1.1 cm whereas previously described right upper lobe nodules have improved and are small in size. No hilar or mediastinal lymphadenopathy, small esophageal hiatal hernia. Mr. Rivero has continued the Zoladex. His last Zoladex injection was 01/30/2019 He states overall he feels so bad due to hot sweats/flashes that are getting worse area he's had significant fatigue. 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 He states he is on the go constantly but is having more trouble with fatigue.. However his major complaint now is horrible hot flashes and sweating . He feels that this is impacting his quality of life. . He's had no urinary problems he denies any hematuria. And wants to hold Zoladex for the time being He did have follow-up bone scan on 05/07/2019. He reported no evidence of metastatic disease to the bony skeleton. 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 Follow-up CT of the chest abdomen and pelvis with contrast was also obtained on 05/07/2019. There was further decreased in the size and density of the previous metastatic nodules in the right apex of the lung. Stable postoperative changes the left upper lobe lung rate no evidence of new foci or pulmonary metastatic disease. He has chronic emphysema. Resolved superior segment left lower lobe previous editorial lesion or infected bullous cavity. He has arteriosclerotic cardiovascular changes as well. CT of the abdomen and pelvis reported right posterior lateral bladder wall mass suspected urological evaluation suggested; prior radiation to the prostate gland; diverticulosis of the colon, most pronounced in the sigmoid region without radiographic evidence of diverticulitis; or chills carotid peripheral vascular changes. The area in the bladder is arising from the right posterior lateral wall of the bladder is suggestion of a foci intralumenal nodule measuring about 1.5 cm in diameter. The remainder of the urinary bladder is normal. Radiation seeds were noted within the prostate gland. for which on 07/11/2019 he underwent TURBT/biopsy which showed papillary urothelial carcinoma, low-grade, grade 1, no muscle invasion seen patient underwent intravesical therapy with mitomycin on 07/11/2019 and follow-up scheduled in [address] Jerome, urologist As far as prostrate cancer is concern, CT PET scan done on 08/17/2019 showed no evidence of recurrent or residual malignancy, in right apex nodule measuring roughly 7 mm is FDG negative. His left lung scarring from the wedge resection [place] PET scan done on June 10, 2020 showed spiculated right apical nodule which is markedly avid, there is a surgical resection changes in the left lung apex. There is a focal moderate uptake near the hilar and of the resection site. There is a left apical 9 mm markedly avid nodule. There is a low left hilar focus of marked uptake which may correspond to small station 11 L node. But no focal uptake within the skeleton or pelvic or retroperitoneal lymphadenopathy. Additional CT scan finding was coronary artery disease most pronounced in the left anterior descending artery Came for follow-up, denies any specific complaints, no fever chills, no nausea or vomiting, no diarrhea constipation, no chest pain or shortness of breath, no new symptoms. Medications: [id number] 2 Capsule Oral daily, Lipitor 1 (40 mg) Tablet Oral daily, Multivitamin Adult 1 Tablet Oral daily, plexus 1 Capsule daily Allergies: No Known Allergies. Review of Systems: Constitutional - Appetite is good and weight stable. Energy level poor. Positive for hot flashes, night sweats. No fever, chills, ENMT - No sinus congestion/drainage. No mouth sores. No sore throat or difficulty swallowing, Hematologic/Lymphatic - No abnormal bruising or bleeding, Respiratory - No dyspnea on exertion, chest pain, cough or hemoptysis, Cardiovascular - No anginal chest pain, palpitations or orthopnea, Gastrointestinal - No nausea, vomiting, diarrhea, GI bleeding, or constipation. No change in bowel habits, no heartburn or early satiety, Genitourinary (M) - No hematuria, dysuria, increased frequency, urgency, hesitancy or incontinence, Musculoskeletal - No joint pain, swelling or redness. No decreased range of motion, Neurologic - No headache or dizziness. No numbness/paresthesias or other focal neurologic symptoms, Psychiatric - No anxiety or depression. No insomnia. Vital Signs: Performed on Jun 19, 2020 09:38 Height - 66.00 in Weight - 202.0 lbs (LOW) BSA - 2.01 sq.m BMI - 32.60 (HIGH) Temperature - 98.0 F (LOW) Pulse - 78 /min Respiration - 20 /min BP - 148/92 mm(hg) (HIGH) O2 Sat - 95 % (LOW) Pain - 0 Performance Status: 0 - Fully active, able to carry on all predisease activities without restrictions. (ECOG) Physical Examination: ENMT - No mouth sores, no thrush, no jaundice, Respiratory - Lungs are clear, Cardiovascular - Regular rate and rhythm of heart , Abdomen - Soft, bowel sounds, Extremities - No visible edema or rash. Lab/Imaging: Test performed on May 11, 2020 08:45 Testosterone, Total 297.4 ng/dL PSA 5.010 ng/mL Impression: Metastatic prostrate cancer involving bilateral lungs status post left thoracoscopy with wedge resection of left upper lobe pulmonary nodule on 11/27/2017 , history of prostate cancer diagnosed about 7 years ago status post brachytherapy #2 left thoracic vent placement skin due to persistent air leak discussed with the patient and his his disease status. 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 Treatment options including combined androgen blockade with Zoladex and bicalutamide versus observation. Both were discussed in detail and the patient opted for combined androgen blockade. All the side effect and possible benefit associated with Zoladex and bicalutamide were discussed in detail and patient expressed understanding and accepted the treatment. He Started on bicalutamide on 01/01/2018. Patient was advised not to take testosterone, in any form including in multivitamins. patient was reluctant to start Zoladex and his has done research. He did not want to pursue Zoladex initially to potential side effects especially fatigue. He was agreeable to continue the Casodex. He wants to complete Casodex to a total of 30 days, then wait 1 month and recheck labs and go from there . He tolerated the Casodex well and later on 08/24/18 agreed to try monthly dose of Zoladex , Which she continued till January 30, 2019 when he took his last dose now after that decided to stop ADT due to related side effects e.g. hot flashes, generalized weakness and fatigue interfering day-to-day activity. Repeat CT scan of chest done on 07/11/2018 showed right apical mass lesion with irregular margins now measures 1.5 x 1.9 x 2.2 cm compared to 1.4 x 1.4 x 1.3 on 05/03/2017 And nodule slightly posterior and medial to this lesion measured 1.1 compared to 1 cm prior exam A cavitary lesion persists in the superior Segment left lower lobe, adjacent to the major fissure now measures 1.2 x 2.4 cm compared to 1.3 x 1.6 cm on prior exam, no new pulmonary nodule seen next CT abdomen pelvis shows no evidence of neoplastic process in abdominal pelvis Bone scan shows no evidence of metastatic disease he was referred to radiation oncology for evaluation for role of SB RT in metastatic lung disease, patient was seen by Dr. Vo and due to location of the pulmonary nodule, SB RT was not offered due to risks involved. Patient underwent follow-up CT scan of chest done on 10/12/2018 which showed stable left suprahilar nodule and cavitary lesion in this suprasegmental left lower lobe along the fissure is unchanged too, whereas previously described pulmonary nodules in the right upper lobe at the apex have improved and also smaller in size. No mediastinal or hilar lymphadenopathy. Small esophageal hiatal hernia. Mr. Rivero has continued the Zoladex. His last Zoladex injection was 01/30/2019. He did have follow-up bone scan on 05/07/2019. He reported no evidence of metastatic disease to the bony skeleton. 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 Follow-up CT of the chest abdomen and pelvis with contrast was also obtained on 05/07/2019. There was further decreased in the size and density of the previous metastatic nodules in the right apex of the lung. Stable postoperative changes the left upper lobe lung rate no evidence of new foci or pulmonary metastatic disease. He has chronic emphysema. Resolved superior segment left lower lobe previous editorial lesion or infected bullous cavity. He has arteriosclerotic cardiovascular changes as well. CT of the abdomen and pelvis reported right posterior lateral bladder wall mass suspected urological evaluation suggested; prior radiation to the prostate gland; diverticulosis of the colon, most pronounced in the sigmoid region without radiographic evidence of diverticulitis; or chills carotid peripheral vascular changes. The area in the bladder is arising from the right posterior lateral wall of the bladder is suggestion of a foci intralumenal nodule measuring about 1.5 cm in diameter. The remainder of the urinary bladder is normal. Ration seeds were noted within the prostate gland.On July 11, 2019 he underwent TURBT/biopsy which showed papillary urothelial carcinoma, low-grade, grade 1, no muscle invasion seen patient underwent intravesical therapy with mitomycin on July 11, 2019 and then a follow-up planned with urology Dr. Jerome Plan: Discussed with patient regarding his choline CT PET scan as well as PSA level drawn this morning shows PSA has gone up to 5.5 from 5.0 on May 11 and 3.5 on April 06, 2020 and 0.39 on November 18, 2019 e.g. doubling time is less than 6 months Clinically, patient is doing well with no new signs symptoms but his follow-up choline CT PET showed multiple lesions in the lung more on the left side as well as right upper lobe spiculated lesion e.g. primary versus metastatic disease but no skeleton mets or pelvic/retroperitoneal lymphadenopathy and other incidental finding was significant coronary artery disease more pronounced in the left anterior descending artery. Discussed with patient regarding treatment options for progressive prostate cancer which include systemic chemotherapy with Taxotere versus ADT with Zoladex/Casodex or observation patient prefer Zoladex alone as in the past he had a lot of side effects with ADT especially hot flashes and generalized weakness and fatigue, but he would consider Zoladex alone at this point and if needed in future Casodex can be added. And if there is a disease progression despite of ADT he may consider chemotherapy with Taxotere too. All the side effects possible benefits associated with Zoladex were discussed again but patient is aware of all the side effects and not too excited about starting treatment but agreed. We will obtain approval from his insurance and then continue every 3 months while monitoring his PSA and also consider follow-up choline CT PET scan after 6 with special attention to right upper lobe spiculated lesion as he may have second primary. As far as, incidental finding of significant coronary artery disease is concerned, we will refer him to cardiology for evaluation. Return to clinic in 1 month after Zoladex with PSA and testosterone Signed By: Guillermina Robertson M.D. <<Signature on File>>
== END 2020-06-19 07:57 | disposition home or self-care (01) ==
LOC: ONCMED 07:59
PROVIDERS: PCP Internal Medicine; Visit Provider Internal Medicine Hematology & Oncology
DX: C61 Malignant neoplasm of prostate (principal); C78.01 Secondary malignant neoplasm of right lung; C78.02 Secondary malignant neoplasm of left lung; I25.10 Atherosclerotic heart disease of native coronary artery without angina pectoris; K44.9 Diaphragmatic hernia without obstruction or gangrene; Z90.2 Acquired absence of lung [part of]
CPT/HCPCS: 36415; 84153; 99214

== ENCOUNTER 2020-07-10 07:45 | Outpatient (CLI) | payer MEDICARE, SELFPAY ==
[2020-07-10] MEDS: lidocaine 1% INJ 20 mL INJECTION (08:16)
[2020-07-10] MEDS: goserelin acetate 10.8 mg Implant IM (08:26)
== END 2020-07-10 07:46 | disposition home or self-care (01) ==
LOC: ONCMED 07:47
PROVIDERS: PCP Internal Medicine; Visit Provider Internal Medicine Hematology & Oncology
DX: C61 Malignant neoplasm of prostate (principal); R97.21 Rising PSA following treatment for malignant neoplasm of prostate; Z79.818 Long term (current) use of other agents affecting estrogen receptors and estrogen levels
CPT/HCPCS: 96372; 96402; J9202

== ENCOUNTER 2020-08-04 05:56 | Outpatient (CLI) | payer MEDICARE, SELFPAY ==
[2020-08-04 17:59] LABS: Testosterone Total 2.5 ng/dL (193-740)
== END 2020-08-04 05:57 | disposition home or self-care (01) ==
LOC: ONCMED 05:58
PROVIDERS: PCP Internal Medicine; Visit Provider Internal Medicine Hematology & Oncology
DX: C61 Malignant neoplasm of prostate (principal); R97.21 Rising PSA following treatment for malignant neoplasm of prostate; C78.02 Secondary malignant neoplasm of left lung
CPT/HCPCS: 36415; 84153; 84403

== ENCOUNTER 2020-08-18 08:09 | Outpatient (CLI) | payer MEDICARE, SELFPAY ==
--- NOTE | 2020-08-18 08:29 | NMCV_ITS ---
NM lula perf SPECT r/s* [id number] Kwaku Rivero Age: 75 Gender: M : 1945 Exam Date: 08/18/2020 09:10 Ordering Phys: Fredy Hansen M.D ([email or web address]) Technologist: HAYLIE Rob Exam Location: [facility] Indications: chest pain STRESS TEST [facility] IMAGE PROTOCOL Rest/Stress 1 Lexiscan Day Radiopharmaceutical Dose (mCi) Administration Site Administered by Rest: Tc-99m 10.7 IV HAYLIE Martinez Sestamibi Stress:Tc-99m 32.8 IV HAYLIE Rob Sestamibi Rest: 18-Aug-2020 60 Discovery 630 Stress: 18-Aug-2020 30 Discovery 630 0.4mg Lexiscan. Images obtained in supine and prone position. SPECT RESULTS Technical Quality: Good Raw Data Analysis: Normal Image Corrections: No attenuation or motion correction applied Summed Stress Score: 0 Summed Rest Score: 0 Summed Difference Score: 0 PERFUSION FINDINGS SPECT images demonstrate homogeneous tracer distribution throughout the myocardium. FUNCTIONAL RESULTS (calculated via Gated SPECT) Stress Image LV EF (%): 63 Stress EDV (mL):63 TID: 0.95 Stress ESV (mL):23 FUNCTIONAL FINDINGS: There is normal left ventricular systolic function. IMPRESSIONS 1. Normal myocardial perfusion with no evidence of ischemia. 2. Normal LV systolic function with EF 63% is noted. Fredy Hansen MD (Electronically Signed) Final Date: 18 August 2020 16:20 S
--- NOTE | 2020-08-18 08:29 | ECG_ITS ---
[facility] Test Date: 2020-08-18 Pat Name: Kwaku Rivero Department: Room: Gender: Male Mirror Silverer: Stephanie Paige : 1945 Requested By: Fredy Hansen Order Number: [id number] [id number] MD: Fredy Hansen M.D. Interpretive Statements NAME OF STUDY: LEXISCAN SESTAMIBI STRESS TEST INDICATION: [Chest Pain, ] Procedure: At the baseline the blood pressure was 164/101 mmHg with a heart rate of 61 bpm. The electrocardiogram showed normal sinus rhythm, normal axis with normal ST and T waves. The Lexiscan was infused over a duration of 20 seconds. A total of 0.4 mg of Lexiscan was infused. The stress phase was continued for a total of 5 minutes. Heart rate at the end of stress phase was 80 bpm with a blood pressure of 160/92 mmHg. The EKG at the peak infusion revealed sinus rhythm with no significant ST-T wave changes. Occasional PVCs were noted. Sestamibi was injected 20 seconds after the Lexiscan infusion. Blood pressure at the end of recovery phase was 167/87 mmHg, and a heart rate of 89 bpm was noted. Conclusion: 1. Normal EKG response to Lexiscan infusion. 2. No Lexiscan induced chest pain or cardiac arrhythmia. 3. Normal blood pressure and heart rate response. 4. Sestamibi/sestamibi perfusion scan pending; see separate report Electronically Signed On 08-18-2020 10:57:49 BRANCH ACCOUNT MANAGER by Fredy Hansen M.D. [email or web address]
[2020-08-18 08:30] VITALS: BMI 30.8
[2020-08-18 10:09] VITALS: BP 157/95; PULSE 82
[2020-08-18] MEDS: regadenoson 0.4 Mg/5 ml Syringe IVP (10:09)
== END 2020-08-18 08:10 | disposition home or self-care (01) ==
LOC: CDL 08:12
PROVIDERS: PCP Internal Medicine; Visit Provider Internal Medicine
DX: R07.9 Chest pain, unspecified (principal)
CPT/HCPCS: 78452; 93017; A9500; J2785

== ENCOUNTER → 2020-08-26 09:06 | Outpatient (BNVA) | payer MEDICARE, SELFPAY | PROVIDERS: PCP Internal Medicine; Visit Provider Urology | DX: C67.1 Malignant neoplasm of dome of bladder (principal) | CPT/HCPCS: 81003 ==

== ENCOUNTER 2020-10-12 09:41 | Outpatient (CLI) | payer MEDICARE, SELFPAY ==
[2020-10-12 10:16] LABS: Basophils % 0.6 %; Eosinophils # 0.1 10^3/uL (0.0-0.8); Eosinophils % 1.8 %; Hematocrit 45.8 % (42.0-52.0); Hemoglobin 15.1 g/dL (11.7-16.6); Lymphocytes # 1.6 10^3/uL (0.8-4.8); Lymphocytes % 26.3 %; Mean Corpuscular Hemoglobin 31.3 pg (28.0-34.0); Mean Platelet Volume 10.3 fL (7.4-10.4); Monocytes # 0.7 10^3/uL (0.2-0.9); Monocytes % 10.5 %; Neutrophils # 3.74 10^3/uL (1.8-7.7); Neutrophils % 60.3 %; Nucleated Red Blood Cells % 0 %; Platelet Count 223 10^3/cmm (130-400); Red Blood Count 4.82 10^6/uL (4.1-5.3); Red Cell Distribution Width 11.9 % (12.1-15.1); White Blood Count 6.2 10^3/uL (4.0-10.0)
[2020-10-12] MEDS: lidocaine 1% INJ 20 mL INJECTION (12:29)
[2020-10-12] MEDS: goserelin acetate 10.8 mg Implant IM (12:40)
[2020-10-12 14:03] LABS: Testosterone Total 2.5 ng/dL (193-740)
--- NOTE | 2020-10-13 22:25 | ONC FU_ITS ---
[facility] Patient Note Patient: Kwaku Rivero Unit #: [id number]: 1945 Dictated By: Rajesh HuertaDate of Visit: Oct 12, 2020 Onc MED Follow-Up/Prog Note Chief Complaint: Metastatic prostate cancer involving bilateral lungs History of Present Illness: Mr. Rivero is a 75-year-old gentleman with history of prostate cancer diagnosed about 9 years ago. At that time, he underwent brachytherapy with excellent response and his last PSA was checked in December 2016 and it was normal around 2. found to have multiple bilateral pulmonary nodules per CTPET, , for which he was evaluated by Dr. Batista and patient underwent left upper lobe lung resection on 11/27/2017 and final pathology report showed infiltrating adenocarcinoma consistent with prostate primary. He had agreed on plan of treatment including combined androgen androgen deprivation with Casodex and Zoladex. but later on decided not to take Zoladex because of his concern about cardiac related toxicity due to Zoladex. However on 08/24, he agreed to try monthly dose of zoladex and casodex on trial basis. He denied taking any testosterone supplements. f/u CT scan of chest done on 07/11/2018 showed a right apical mass lesion with irregular margins measuring 1.5 x 1.9 x 2.2 cm and another nodule slightly posterior and medial to this lesion measured 1.1 and a cavitary lesion persist in the superior segment of left upper lobe measure 1.2 x 2.4 cm Follow-up CT scanning of chest done on 10/12/2018 showed stable left suprahilar opacity measuring 1.5 x 1.8 x 2.5 cm is unchanged and left upper lobe nodule is also unchanged measuring 1.9 x 1.1 cm whereas previously described right upper lobe nodules have improved and are small in size. No hilar or mediastinal lymphadenopathy, small esophageal hiatal hernia. Mr. Rivero has continued the Zoladex. His last Zoladex injection was 01/30/2019 prior to today's visit. He stated overall he felt so bad due to hot sweats/flashes and he had significant fatigue. He stated that it was hard for him to do his normal daily activities as well as working. He states he was on the go constantly but was having more trouble with significant fatigue. The Zoladex was placed on hold at Mr Rivero's request due to horrible hot flashes and sweating . He stated it was impacting his quality of life. He did have follow-up bone scan on 05/07/2019. He reported no evidence of metastatic disease to the bony skeleton. 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 Follow-up CT of the chest abdomen and pelvis with contrast was also obtained on 05/07/2019. There was further decreased in the size and density of the previous metastatic nodules in the right apex of the lung. Stable postoperative changes the left upper lobe lung rate no evidence of new foci or pulmonary metastatic disease. He has chronic emphysema. Resolved superior segment left lower lobe previous editorial lesion or infected bullous cavity. He has arteriosclerotic cardiovascular changes as well. CT of the abdomen and pelvis reported right posterior lateral bladder wall mass suspected urological evaluation suggested; prior radiation to the prostate gland; diverticulosis of the colon, most pronounced in the sigmoid region without radiographic evidence of diverticulitis; or chills carotid peripheral vascular changes. The area in the bladder is arising from the right posterior lateral wall of the bladder is suggestion of a foci intralumenal nodule measuring about 1.5 cm in diameter. The remainder of the urinary bladder is normal. Radiation seeds were noted within the prostate gland. On 07/11/2019 he underwent TURBT/biopsy which showed papillary urothelial carcinoma, low-grade, grade 1, no muscle invasion seen patient underwent intravesical therapy with mitomycin on 07/11/2019 and follow-up scheduled every [address] Jerome, urologist. As far as prostate cancer is concern, CT PET scan done on 08/17/2019 showed no evidence of recurrent or residual malignancy, in right apex nodule measuring roughly 7 mm is FDG negative. His left lung scarring from the wedge resection [place] PET scan done on June 10, 2020 showed spiculated right apical nodule which is markedly avid, there is a surgical resection changes in the left lung apex. There is a focal moderate uptake near the hilar and of the resection site. There is a left apical 9 mm markedly avid nodule. There is a low left hilar focus of marked uptake which may correspond to small station 11 L node. But no focal uptake within the skeleton or pelvic or retroperitoneal lymphadenopathy. Mr Peter resumed Zoladex on 08/04/2020. Dr Robertson had discussed with Mr Rivero treatment options for progressive prostate cancer which include systemic chemotherapy with Taxotere versus ADT with Zoladex/Casodex or observation. Mr Rivero preferred resuming the Zoladex alone, as in the past he had a lot of side effects with ADT- especially hot flashes and generalized weakness and fatigue. It was also recommended that iif needed in future. Casodex can be added. And if there is a disease progression despite of ADT he may consider chemotherapy with Taxotere too. Additional CT scan finding was coronary artery disease most pronounced in the left anterior descending artery. He has had work up with cardiology and Mr Rivero reports everything looked good . He has had follow-up with Dr. Jerome in urology on 08/26/2020 and did have cystoscopy which revealed 1 small papillary recurrence on the dome that was completely fulgurated. There were a few areas of erythema but no distinct lesions. He will continue with surveillance cystoscopies as previously scheduled per Dr. Hein. Mr. Rivero is here today for follow-up. He is due for his second Zoladex 10.8 mg since resuming on 07/10/2020. He states overall he feels good. He is had some hot flashes and some fatigue but nothing like he had with his previous experience with Zoladex. He states overall he is tolerating it well. He remains active. He denies any new concerns. He states he still short of breath but attributes that to 40 pound weight gain . He states that he has had a work-up in cardiology and there is nothing wrong . He denies any nausea or vomiting. He denies any mood swings. He states his appetite is good. He denies fever or chills. He has had no lower extremity edema. He did have follow-up with Dr. Jerome as above. He has had no urinary problems since his cystoscopy in August 2020. His ECOG is 0. Past Medical History: Anxiety History of prostate cancer Hypercholesterolemia Past Surgical History: Seed implant for [employer] TURP Partial lobectomy in 2018 Colonoscopy in 2011 Allergies: No Known Allergies. Medications: Ejic-Ehdv-Dldqct 2 Capsule Oral daily Lipitor 1 (40 mg) Tablet Oral daily Multivitamin Adult 1 Tablet Oral daily plexus 1 Capsule daily Family History: Mr. Rivero's mother is alive. Mr. Rivero's father is . Mr. Rivero has 2 maternal uncles: 2 . Mr. Rivero's first maternal uncle's prostate cancer. Another maternal uncle's prostate cancer. Patient does not know about his fathers health history. His mother is still alive and pretty healthy. 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 Mr. Rivero quit smoking 11 years ago but had smoked 1.0 pack/day for 20 years. He has no history of drinking. He has indicated exposure to the following products: chewing tobacco. Patient chewed tobacco many years ago for about 3 years and no longer chews. Review Of Symptoms: Constitutional Denies fevers, chills, weight loss. Has had some fatigue, hot sweats and hot flashes. Allergic/Immunologic No reactions. Eyes Denies significant visual changes. No diplopia. No amaurosis. ENMT Denies changes in hearing, sore throat, mouth sores, difficulty or changes in swallowing ability, and/or sinus drainage. Hematologic/Lymphatic Denies easy bruising or bleeding. The patient denies any tender or palpable lymph nodes. Respiratory Denies chest pain, cough or hemoptysis. Denies orthopnea. States he is having increased shortness of breath due to my weight Cardiovascular Denies anginal chest pain, palpitations or orthopnea. He has had followup with cardiology and everything is good . Gastrointestinal Denies nausea, vomiting, diarrhea, GI bleeding, or constipation. Denies change in bowel habits and/or stool color, or early Genitourinary (M) Denies hematuria, dysuria, increased frequency, urgency, hesitancy or incontinence. Musculoskeletal Denies joint pain, swelling or redness. No decreased range of motion. Integumentary Denies chronic rashes, inflammation, ulcerations or skin changes. Neurologic Denies headache, blurred vision, and no areas of focal weakness or numbness. Normal gait. No sensory problems. Psychiatric Denies insomnia, depression, dannie or mood swings. Vital Signs: Performed on Oct 12, 2020 11:53 Height - 66.00 in Weight - 204.2 lbs (HIGH) BSA - 2.02 sq.m BMI - 32.96 (HIGH) Temperature - 97.9 F (LOW) Pulse - 78 /min Respiration - 17 /min BP - 177/103 mm(hg) (HIGH) O2 Sat - 97 % Pain - 0,0 - Fully active, able to carry on all predisease activities without restrictions. (ECOG) Physical Examination: Constitutional Alert, oriented, no acute distress. Skin pink, warm and dry. Head Normocephalic; atraumatic. Eyes Conjunctivae and sclerae are clear and without icterus. Pupils are reactive and equal. Neck Supple without masses or thyromegaly. No jugular venous distension. Hematologic/Lymphatic No petechiae or purpura. No tender or palpable lymph nodes in the cervical or supraclavicular area. Respiratory Lungs are clear to auscultation without rhonchi or wheezing. Cardiovascular Regular rate and rhythm of heart without murmurs,clicks, gallops or rubs. Abdomen Non-tender, non-distended, no masses, ascites. Good bowel sounds noted in all quads. No guarding or rebound tenderness. No pulsatile masses. Back/Spine Non-tender to palpation. Extremities No visible deformities, no cyanosis, clubbing or edema. Musculoskeletal No tenderness or swelling, normal range of motion without obvious weakness. Integumentary No rashes or lesions. Neurologic No sensory or motor deficits, normal cerebellar function, normal gait. Psychiatric Alert and oriented times three. Coherent speech. Verbalizes understanding of our discussions today. Laboratory:Test performed on Oct 12, 2020 09:55 Testosterone, Total 2.5 ng/dL WBC 6.2 10 3/uL RBC 4.82 10 6/uL HGB 15.1 g/dL HCT 45.8 % MCV 95.0 fL MCH 31.3 pg MCHC 33.0 g/dL RDW 11.9 % Platelet Count 223 10 3/cmm MPV 10.3 fL Neutrophils 3.74 10 3/uL Lymphocytes 1.6 10 3/uL Monocytes 0.7 10 3/uL Eosinophils 0.1 10 3/uL Basophils 0.0 10 3/uL Neutrophil % 60.3 % Lymphocyte % 26.3 % Monocyte % 10.5 % Eosinophil % 1.8 % Basophils % 0.6 % NRBC % 0 % PSA 2.800 ng/mL Impression: Metastatic prostrate cancer involving bilateral lungs status post left thoracoscopy with wedge resection of left upper lobe pulmonary nodule on 11/27/2017 , history of prostate cancer diagnosed about 7 years ago status post brachytherapy #2 left thoracic vent placement skin due to persistent air leak discussed with the patient and his his disease status. 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 Treatment options including combined androgen blockade with Zoladex and bicalutamide versus observation. Both were discussed in detail and the patient opted for combined androgen blockade. All the side effect and possible benefit associated with Zoladex and bicalutamide were discussed in detail and patient expressed understanding and accepted the treatment. He Started on bicalutamide on 01/01/2018. Patient was advised not to take testosterone, in any form including in multivitamins. patient was reluctant to start Zoladex and his has done research. He did not want to pursue Zoladex initially to potential side effects especially fatigue. He was agreeable to continue the Casodex. He wants to complete Casodex to a total of 30 days, then wait 1 month and recheck labs and go from there . He tolerated the Casodex well and later on 08/24/18 agreed to try monthly dose of Zoladex , Which she continued till January 30, 2019 when he took his last dose now after that decided to stop ADT due to related side effects e.g. hot flashes, generalized weakness and fatigue interfering day-to-day activity. Repeat CT scan of chest done on 07/11/2018 showed right apical mass lesion with irregular margins now measures 1.5 x 1.9 x 2.2 cm compared to 1.4 x 1.4 x 1.3 on 05/03/2017 And nodule slightly posterior and medial to this lesion measured 1.1 compared to 1 cm prior exam A cavitary lesion persists in the superior Segment left lower lobe, adjacent to the major fissure now measures 1.2 x 2.4 cm compared to 1.3 x 1.6 cm on prior exam, no new pulmonary nodule seen next CT abdomen pelvis shows no evidence of neoplastic process in abdominal pelvis Bone scan shows no evidence of metastatic disease he was referred to radiation oncology for evaluation for role of SB RT in metastatic lung disease, patient was seen by Dr. Vo and due to location of the pulmonary nodule, SB RT was not offered due to risks involved. Patient underwent follow-up CT scan of chest done on 10/12/2018 which showed stable left suprahilar nodule and cavitary lesion in this suprasegmental left lower lobe along the fissure is unchanged too, whereas previously described pulmonary nodules in the right upper lobe at the apex have improved and also smaller in size. No mediastinal or hilar lymphadenopathy. Small esophageal hiatal hernia. Mr. Rivero had continued the Zoladex. His last Zoladex injection was 01/30/2019. He did have follow-up bone scan on 05/07/2019. He reported no evidence of metastatic disease to the bony skeleton. 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 Follow-up CT of the chest abdomen and pelvis with contrast was also obtained on 05/07/2019. There was further decreased in the size and density of the previous metastatic nodules in the right apex of the lung. Stable postoperative changes the left upper lobe lung rate no evidence of new foci or pulmonary metastatic disease. He has chronic emphysema. Resolved superior segment left lower lobe previous editorial lesion or infected bullous cavity. He has arteriosclerotic cardiovascular changes as well. CT of the abdomen and pelvis reported right posterior lateral bladder wall mass suspected urological evaluation suggested; prior radiation to the prostate gland; diverticulosis of the colon, most pronounced in the sigmoid region without radiographic evidence of diverticulitis; or chills carotid peripheral vascular changes. The area in the bladder is arising from the right posterior lateral wall of the bladder is suggestion of a foci intralumenal nodule measuring about 1.5 cm in diameter. The remainder of the urinary bladder is normal. Ration seeds were noted within the prostate gland.On July 11, 2019 he underwent TURBT/biopsy which showed papillary urothelial carcinoma, low-grade, grade 1, no muscle invasion seen patient underwent intravesical therapy with mitomycin on July 11, 2019 and then a follow-up planned with urology Dr. Jerome. His last appointment in urology was 08/26/[address] Robertson did see Mr Rivero after the choline CT PET scan as well as PSA level drawn this morning shows PSA has gone up to 5.5 from 5.0 on May 11 and 3.5 on April 06, 2020 and 0.39 on November 18, 2019 e.g. doubling time is less than 6 months Clinically, patient is doing well with no new signs symptoms but his follow-up choline CT PET showed multiple lesions in the lung more on the left side as well as right upper lobe spiculated lesion e.g. primary versus metastatic disease but no skeleton mets or pelvic/retroperitoneal lymphadenopathy and other incidental finding was significant coronary artery disease more pronounced in the left anterior descending artery. Dr Robertson discussed with Mr Rivero treatment options for progressive prostate cancer which include systemic chemotherapy with Taxotere versus ADT with Zoladex/Casodex or observation. Mr Rivero preferred resuming the Zoladex alone, as in the past he had a lot of side effects with ADT- especially hot flashes and generalized weakness and fatigue. It was also recommended that iif needed in future. Casodex can be added. And if there is a disease progression despite of ADT he may consider chemotherapy with Taxotere too. Dr Robertson recommended a trial of Zoladex every 3 months while monitoring his PSA. He also recommended follow-up choline CT PET scan after 6 with special attention to right upper lobe spiculated lesion as he may have second primary. Mr Rivero resumed Zoladex on 07/10/2020. His PSA had decreased from 5.53 in June 14-3.34 on 08/04/2020 and it was 2.80 today. His testosterone total is 2.5 down from 297.4 in May 11, 2020. Plan: PROBLEMS ADDRESSED TODAY 1. Prostate cancer with pulmonary involvement A. Continue with Zoladex 10.8 mg every 3 months. He is tolerating it relatively well he does have hot flashes but states they are tolerable. His energy has not declined as much as it had with his prior experience with Zoladex. He states he still remains active. He states he does get short of breath but decided that is due to his weight as he has gained 40 pounds B. Today's labs reviewed in detail discussed with Mr. Rivero and a copy was given to him WBC 6.2, hemoglobin 15.1, platelets 223,000. Testosterone and PSA is as above. Chemistry was not requested for this visit. C. Plan to continue the Zoladex every 3 months. We did discuss the possibility of repeating his choline PET/CT but he states I am not returning to [place] or go back to [place] before I go there again . We will have him see Dr. Robertson back in 3 months and they can discuss his restaging imaging at that time. D. He states he has cough with clear sputum at times but it is not been any worse than his normal. He states that he does not feel that his shortness of breath is related to his lungs and is more so due to his weight. E. We will plan to see him back in 3 months with CBC CMP PSA and total testosterone. F. Mr. Rivero was encouraged to contact us in interim should questions or problems arise. Signed By: Rajesh Huerta-, [facility] Guillermina Robertson MD <<Signature on File>>
== END 2020-10-12 09:42 | disposition home or self-care (01) ==
LOC: ONCMED 09:45
PROVIDERS: Internal Medicine Hematology & Oncology; PCP Internal Medicine; Visit Provider Nurse Practitioner
DX: C61 Malignant neoplasm of prostate (principal); C78.02 Secondary malignant neoplasm of left lung; R97.21 Rising PSA following treatment for malignant neoplasm of prostate; K44.9 Diaphragmatic hernia without obstruction or gangrene; Z79.818 Long term (current) use of other agents affecting estrogen receptors and estrogen levels
CPT/HCPCS: 36415; 84153; 84403; 85025; 96372; 96402; 99214; J9202

== ENCOUNTER 2021-01-15 07:46 | Outpatient (CLI) | payer MEDICARE, SELFPAY ==
[2021-01-15 08:21] LABS: Basophils % 0.6 %; Eosinophils # 0.1 10^3/uL (0.0-0.8); Hematocrit 44.7 % (42.0-52.0); Hemoglobin 15.1 g/dL (11.7-16.6); Lymphocytes # 1.7 10^3/uL (0.8-4.8); Lymphocytes % 26.9 %; Mean Corpuscular HGB Conc 33.8 g/dL (30.0-36.0); Mean Corpuscular Hemoglobin 31.4 pg (28.0-34.0); Mean Corpuscular Volume 92.9 fL (80-94); Mean Platelet Volume 10.5 fL (7.4-10.4); Monocytes # 0.6 10^3/uL (0.2-0.9); Monocytes % 9.3 %; Neutrophils # 3.94 10^3/uL (1.8-7.7); Nucleated Red Blood Cells % 0 %; Platelet Count 230 10^3/cmm (130-400); Red Blood Count 4.81 10^6/uL (4.1-5.3); Red Cell Distribution Width 11.9 % (12.1-15.1); White Blood Count 6.5 10^3/uL (4.0-10.0)
[2021-01-15 08:52] LABS: Alanine Aminotransferase 28 U/L (0-41); Albumin Level 4.4 g/dL (3.5-5.2); Alkaline Phosphatase 85 IU/L (40-130); Anion Gap 14.4 (5-19); Aspartate Amino Transferase 23 U/L (0-40); Blood Urea Nitrogen 17 mg/dL (8-23); Calcium 8.7 mg/dL (8.5-10.5); Carbon Dioxide 25 mmol/L (22-29); Chloride 104 mmol/L (98-107); Globulin 2.1 g/dL (1.3-4.6); Glucose 114 mg/dL (65-115); Osmolality Calculated 290 mOsm/kg (285-295); Potassium 4.4 mmol/L (3.5-5.1); Sodium 139 mmol/L (136-145); Total Bilirubin 0.4 mg/dL (0.15-1.2); Total Protein 6.5 g/dL (6.6-8.7)
== END 2021-01-15 07:47 | disposition home or self-care (01) ==
PROVIDERS: PCP Internal Medicine; Visit Provider Internal Medicine Hematology & Oncology
DX: C61 Malignant neoplasm of prostate (principal); C78.02 Secondary malignant neoplasm of left lung; R97.21 Rising PSA following treatment for malignant neoplasm of prostate
CPT/HCPCS: 36415; 80053; 84153; 85025

== ENCOUNTER 2021-01-18 05:50 | Outpatient (CLI) | payer MEDICARE, SELFPAY ==
[2021-01-18] MEDS: lidocaine 1% INJ 20 mL INJECTION (10:15)
[2021-01-18] MEDS: goserelin acetate 10.8 mg Implant IM (10:26)
--- NOTE | 2021-01-20 08:32 | ONC FU_ITS ---
Dr. Robertson follow up note Patient: Kwaku Rivero Unit #: [id number]: 1945 Dicatated By: Guillermina Robertson M.D.Date of Visit:Jan 18, 2021 Onc Med Follow-up/Prog Note History of Present Illness: Mr. Rivero is a 75-year-old gentleman with history of prostate cancer diagnosed about 9 years ago. At that time, he underwent brachytherapy with excellent response and his last PSA was checked in December 2016 and it was normal around 2. found to have multiple bilateral pulmonary nodules per CTPET, , for which he was evaluated by Dr. Batista and patient underwent left upper lobe lung resection on 11/27/2017 and final pathology report showed infiltrating adenocarcinoma consistent with prostate primary. He had agreed on plan of treatment including combined androgen androgen deprivation with Casodex and Zoladex. but later on decided not to take Zoladex because of his concern about cardiac related toxicity due to Zoladex. However on 08/24, he agreed to try monthly dose of zoladex and casodex on trial basis. He denied taking any testosterone supplements. f/u CT scan of chest done on 07/11/2018 showed a right apical mass lesion with irregular margins measuring 1.5 x 1.9 x 2.2 cm and another nodule slightly posterior and medial to this lesion measured 1.1 and a cavitary lesion persist in the superior segment of left upper lobe measure 1.2 x 2.4 cm Follow-up CT scanning of chest done on 10/12/2018 showed stable left suprahilar opacity measuring 1.5 x 1.8 x 2.5 cm is unchanged and left upper lobe nodule is also unchanged measuring 1.9 x 1.1 cm whereas previously described right upper lobe nodules have improved and are small in size. No hilar or mediastinal lymphadenopathy, small esophageal hiatal hernia. Mr. Rivero has continued the Zoladex. His last Zoladex injection was 01/30/2019 prior to today's visit. He stated overall he felt so bad due to hot sweats/flashes and he had significant fatigue. He stated that it was hard for him to do his normal daily activities as well as working. He states he was on the go constantly but was having more trouble with significant fatigue. The Zoladex was placed on hold at Mr Rivero's request due to horrible hot flashes and sweating . He stated it was impacting his quality of life. He did have follow-up bone scan on 05/07/2019. He reported no evidence of metastatic disease to the bony skeleton. 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 Follow-up CT of the chest abdomen and pelvis with contrast was also obtained on 05/07/2019. There was further decreased in the size and density of the previous metastatic nodules in the right apex of the lung. Stable postoperative changes the left upper lobe lung rate no evidence of new foci or pulmonary metastatic disease. He has chronic emphysema. Resolved superior segment left lower lobe previous editorial lesion or infected bullous cavity. He has arteriosclerotic cardiovascular changes as well. CT of the abdomen and pelvis reported right posterior lateral bladder wall mass suspected urological evaluation suggested; prior radiation to the prostate gland; diverticulosis of the colon, most pronounced in the sigmoid region without radiographic evidence of diverticulitis; or chills carotid peripheral vascular changes. The area in the bladder is arising from the right posterior lateral wall of the bladder is suggestion of a foci intralumenal nodule measuring about 1.5 cm in diameter. The remainder of the urinary bladder is normal. Radiation seeds were noted within the prostate gland. On 07/11/2019 he underwent TURBT/biopsy which showed papillary urothelial carcinoma, low-grade, grade 1, no muscle invasion seen patient underwent intravesical therapy with mitomycin on 07/11/2019 and follow-up scheduled every [address] Jerome, urologist. As far as prostate cancer is concern, CT PET scan done on 08/17/2019 showed no evidence of recurrent or residual malignancy, in right apex nodule measuring roughly 7 mm is FDG negative. His left lung scarring from the wedge resection [place] PET scan done on June 10, 2020 showed spiculated right apical nodule which is markedly avid, there is a surgical resection changes in the left lung apex. There is a focal moderate uptake near the hilar and of the resection site. There is a left apical 9 mm markedly avid nodule. There is a low left hilar focus of marked uptake which may correspond to small station 11 L node. But no focal uptake within the skeleton or pelvic or retroperitoneal lymphadenopathy. Mr Peter resumed Zoladex on 08/04/2020. Dr Robertson had discussed with Mr Rivero treatment options for progressive prostate cancer which include systemic chemotherapy with Taxotere versus ADT with Zoladex/Casodex or observation. Mr Rivero preferred resuming the Zoladex alone, as in the past he had a lot of side effects with ADT- especially hot flashes and generalized weakness and fatigue. It was also recommended that iif needed in future. Casodex can be added. And if there is a disease progression despite of ADT he may consider chemotherapy with Taxotere too. Additional CT scan finding was coronary artery disease most pronounced in the left anterior descending artery. He has had work up with cardiology and Mr Rivero reports everything looked good . He has had follow-up with Dr. Jerome in urology on 08/26/2020 and did have cystoscopy which revealed 1 small papillary recurrence on the dome that was completely fulgurated. There were a few areas of erythema but no distinct lesions. He will continue with surveillance cystoscopies as previously scheduled per Dr. Hein. Came for follow-up, denies any specific complaint except hot flashes and do weight gain otherwise tolerating 3 monthly Zoladex well. No fever chills, no nausea or vomiting, no diarrhea or constipation, no new bony pains Medications: [id number] 2 Capsule Oral daily, Lipitor 1 (40 mg) Tablet Oral daily, Multivitamin Adult 1 Tablet Oral daily, plexus 1 Capsule daily Allergies: No Known Allergies. Review of Systems: Review of Systems is not available for this patient. Vital Signs: Performed on Jan 18, 2021 08:54 Height - 66.00 in Weight - 205.4 lbs (HIGH) BSA - 2.02 sq.m BMI - 33.15 (HIGH) Temperature - 97.6 F (LOW) Pulse - 78 /min Respiration - 18 /min BP - 158/91 mm(hg) (HIGH) O2 Sat - 93 % (LOW) Pain - 0 Fatigue - 0 Performance Status: 0 - Fully active, able to carry on all predisease activities without restrictions. (ECOG) Physical Examination: ENMT - No mouth sores, no thrush, no jaundice, Respiratory - Lungs are clear to auscultation, Cardiovascular - Regular rate and rhythm of heart, Abdomen - Soft, bowel sounds present, Extremities - No visible edema. Lab/Imaging: Test performed on Oct 12, 2020 09:55 Testosterone, Total 2.5 ng/dL WBC 6.2 10 3/uL RBC 4.82 10 6/uL HGB 15.1 g/dL HCT 45.8 % MCV 95.0 fL MCH 31.3 pg MCHC 33.0 g/dL RDW 11.9 % Platelet Count 223 10 3/cmm MPV 10.3 fL Neutrophils 3.74 10 3/uL Lymphocytes 1.6 10 3/uL Monocytes 0.7 10 3/uL Eosinophils 0.1 10 3/uL Basophils 0.0 10 3/uL Neutrophil % 60.3 % Lymphocyte % 26.3 % Monocyte % 10.5 % Eosinophil % 1.8 % Basophils % 0.6 % NRBC % 0 % PSA 2.800 ng/mL Impression: Metastatic prostrate cancer involving bilateral lungs status post left thoracoscopy with wedge resection of left upper lobe pulmonary nodule on 11/27/2017 , history of prostate cancer diagnosed about 7 years ago status post brachytherapy #2 left thoracic vent placement skin due to persistent air leak discussed with the patient and his his disease status. 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 Treatment options including combined androgen blockade with Zoladex and bicalutamide versus observation. Both were discussed in detail and the patient opted for combined androgen blockade. All the side effect and possible benefit associated with Zoladex and bicalutamide were discussed in detail and patient expressed understanding and accepted the treatment. He Started on bicalutamide on 01/01/2018. Patient was advised not to take testosterone, in any form including in multivitamins. patient was reluctant to start Zoladex and his has done research. He did not want to pursue Zoladex initially to potential side effects especially fatigue. He was agreeable to continue the Casodex. He wants to complete Casodex to a total of 30 days, then wait 1 month and recheck labs and go from there . He tolerated the Casodex well and later on 08/24/18 agreed to try monthly dose of Zoladex , Which he continued till January 30, 2019 when he took his last dose now after that decided to stop ADT due to related side effects e.g. hot flashes, generalized weakness and fatigue interfering day-to-day activity. Repeat CT scan of chest done on 07/11/2018 showed right apical mass lesion with irregular margins now measures 1.5 x 1.9 x 2.2 cm compared to 1.4 x 1.4 x 1.3 on 05/03/2017 And nodule slightly posterior and medial to this lesion measured 1.1 compared to 1 cm prior exam A cavitary lesion persists in the superior Segment left lower lobe, adjacent to the major fissure now measures 1.2 x 2.4 cm compared to 1.3 x 1.6 cm on prior exam, no new pulmonary nodule seen next CT abdomen pelvis shows no evidence of neoplastic process in abdominal pelvis Bone scan shows no evidence of metastatic disease he was referred to radiation oncology for evaluation for role of SB RT in metastatic lung disease, patient was seen by Dr. Vo and due to location of the pulmonary nodule, SB RT was not offered due to risks involved. Patient underwent follow-up CT scan of chest done on 10/12/2018 which showed stable left suprahilar nodule and cavitary lesion in this suprasegmental left lower lobe along the fissure is unchanged too, whereas previously described pulmonary nodules in the right upper lobe at the apex have improved and also smaller in size. No mediastinal or hilar lymphadenopathy. Small esophageal hiatal hernia. Mr. Rivero had continued the Zoladex. His last Zoladex injection was 01/30/2019. He did have follow-up bone scan on 05/07/2019. He reported no evidence of metastatic disease to the bony skeleton. 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 Follow-up CT of the chest abdomen and pelvis with contrast was also obtained on 05/07/2019. There was further decreased in the size and density of the previous metastatic nodules in the right apex of the lung. Stable postoperative changes the left upper lobe lung rate no evidence of new foci or pulmonary metastatic disease. He has chronic emphysema. Resolved superior segment left lower lobe previous editorial lesion or infected bullous cavity. He has arteriosclerotic cardiovascular changes as well. CT of the abdomen and pelvis reported right posterior lateral bladder wall mass suspected urological evaluation suggested; prior radiation to the prostate gland; diverticulosis of the colon, most pronounced in the sigmoid region without radiographic evidence of diverticulitis; or chills carotid peripheral vascular changes. The area in the bladder is arising from the right posterior lateral wall of the bladder is suggestion of a foci intralumenal nodule measuring about 1.5 cm in diameter. The remainder of the urinary bladder is normal. Ration seeds were noted within the prostate gland.On July 11, 2019 he underwent TURBT/biopsy which showed papillary urothelial carcinoma, low-grade, grade 1, no muscle invasion seen patient underwent intravesical therapy with mitomycin on July 11, 2019 and then a follow-up planned with urology Dr. Jerome. His last appointment in urology was 08/26/2020 for cystoscopy. did see Mr Rivero after the ch[place] CT PET scan as well as PSA level drawn this morning shows PSA has gone up to 5.5 from 5.0 on May 11 and 3.5 on April 06, 2020 and 0.39 on November 18, 2019 e.g. doubling time is less than 6 months Clinically, patient is doing well with no new signs symptoms but his follow-up ch[place] CT PET showed multiple lesions in the lung more on the left side as well as right upper lobe spiculated lesion e.g. primary versus metastatic disease but no skeleton mets or pelvic/retroperitoneal lymphadenopathy and other incidental finding was significant coronary artery disease more pronounced in the left anterior descending artery. discussed with Mr Rivero treatment options for progressive prostate cancer which include systemic chemotherapy with Taxotere versus ADT with Zoladex/Casodex or observation. Mr Rivero preferred resuming the Zoladex alone, as in the past he had a lot of side effects with ADT- especially hot flashes and generalized weakness and fatigue. It was also recommended that iif needed in future. Casodex can be added. And if there is a disease progression despite of ADT he may consider chemotherapy with Taxotere too. recommended a trial of Zoladex every 3 months while monitoring his PSA. He also recommended follow-up choline CT PET scan after 6 with special attention to right upper lobe spiculated lesion as he may have second primary. Mr Rivero resumed Zoladex on 07/10/2020. His PSA had decreased from 5.53 in June 14-3.34 on 08/04/2020 and it was 2.80 today. His testosterone total is 2.5 down from 297.4 in May 11, 2020. Plan: Discussed with patient regarding his labs white blood count 6.5 hemoglobin 15.1 hematocrit 44.7 platelets 230,000 CMP within normal limits PSA 2.22 compared to 2.80 on October 12, 2020 Clinically, patient doing well with no new signs symptom suggestive of disease progression, tolerating 3 monthly Zoladex well but with expected side effects e.g. hot flashes and weight gain. We will proceed with his next 3 monthly dose of Zoladex today and then he will return to clinic in 3 months with PSA and testosterone As far as weight gain and hot flashes concerned, patient was advised to monitor his diet as well as resume exercise as tolerated, if there is no improvement, will consider intervention. Signed By: Guillermina Robertson M.D. <<Signature on File>>
== END 2021-01-18 05:51 | disposition home or self-care (01) ==
LOC: ONCMED 05:53
PROVIDERS: PCP Internal Medicine; Visit Provider Internal Medicine Hematology & Oncology
DX: C61 Malignant neoplasm of prostate (principal); C78.01 Secondary malignant neoplasm of right lung; C78.02 Secondary malignant neoplasm of left lung; J43.9 Emphysema, unspecified; K44.9 Diaphragmatic hernia without obstruction or gangrene; Z79.818 Long term (current) use of other agents affecting estrogen receptors and estrogen levels
CPT/HCPCS: 96372; 96402; 99215; J9202

== ENCOUNTER 2021-04-06 09:07 | Outpatient (CLI) | payer MEDICARE, SELFPAY ==
[2021-04-06 10:02] LABS: Testosterone Total < 2.5 ng/dL (193-740)
== END 2021-04-06 09:08 | disposition home or self-care (01) ==
LOC: ONCMED 09:08
PROVIDERS: PCP Internal Medicine; Visit Provider Internal Medicine Hematology & Oncology
DX: C61 Malignant neoplasm of prostate (principal); R97.21 Rising PSA following treatment for malignant neoplasm of prostate; Z85.46 Personal history of malignant neoplasm of prostate; C78.02 Secondary malignant neoplasm of left lung; Z79.899 Other long term (current) drug therapy
CPT/HCPCS: 36415; 81003; 84153; 84403

== ENCOUNTER 2021-04-12 06:05 | Outpatient (CLI) | payer MEDICARE, SELFPAY ==
--- NOTE | 2021-04-12 18:13 | ONC FU_ITS ---
Dr. Robertson follow up note Patient: Kwaku Rivero Unit #: [id number]: [id number] Dicatated By: Guillermina Robertson M.D.Date of Visit:Apr 12, 2021 Onc Med Follow-up/Prog Note History of Present Illness: Mr. Rivero is a 76-year-old gentleman with history of prostate cancer diagnosed about 9 years ago. At that time, he underwent brachytherapy with excellent response and his last PSA was checked in December 2016 and it was normal around 2. found to have multiple bilateral pulmonary nodules per CTPET, , for which he was evaluated by Dr. Batista and patient underwent left upper lobe lung resection on 11/27/2017 and final pathology report showed infiltrating adenocarcinoma consistent with prostate primary. He had agreed on plan of treatment including combined androgen androgen deprivation with Casodex and Zoladex. but later on decided not to take Zoladex because of his concern about cardiac related toxicity due to Zoladex. However on 08/24, he agreed to try monthly dose of zoladex and casodex on trial basis. He denied taking any testosterone supplements. f/u CT scan of chest done on 07/11/2018 showed a right apical mass lesion with irregular margins measuring 1.5 x 1.9 x 2.2 cm and another nodule slightly posterior and medial to this lesion measured 1.1 and a cavitary lesion persist in the superior segment of left upper lobe measure 1.2 x 2.4 cm Follow-up CT scanning of chest done on 10/12/2018 showed stable left suprahilar opacity measuring 1.5 x 1.8 x 2.5 cm is unchanged and left upper lobe nodule is also unchanged measuring 1.9 x 1.1 cm whereas previously described right upper lobe nodules have improved and are small in size. No hilar or mediastinal lymphadenopathy, small esophageal hiatal hernia. Mr. Rivero has continued the Zoladex. His last Zoladex injection was 01/30/2019 prior to today's visit. He stated overall he felt so bad due to hot sweats/flashes and he had significant fatigue. He stated that it was hard for him to do his normal daily activities as well as working. He states he was on the go constantly but was having more trouble with significant fatigue. The Zoladex was placed on hold at Mr Rivero's request due to horrible hot flashes and sweating . He stated it was impacting his quality of life. He did have follow-up bone scan on 05/07/2019. He reported no evidence of metastatic disease to the bony skeleton. 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 Follow-up CT of the chest abdomen and pelvis with contrast was also obtained on 05/07/2019. There was further decreased in the size and density of the previous metastatic nodules in the right apex of the lung. Stable postoperative changes the left upper lobe lung rate no evidence of new foci or pulmonary metastatic disease. He has chronic emphysema. Resolved superior segment left lower lobe previous editorial lesion or infected bullous cavity. He has arteriosclerotic cardiovascular changes as well. CT of the abdomen and pelvis reported right posterior lateral bladder wall mass suspected urological evaluation suggested; prior radiation to the prostate gland; diverticulosis of the colon, most pronounced in the sigmoid region without radiographic evidence of diverticulitis; or chills carotid peripheral vascular changes. The area in the bladder is arising from the right posterior lateral wall of the bladder is suggestion of a foci intralumenal nodule measuring about 1.5 cm in diameter. The remainder of the urinary bladder is normal. Radiation seeds were noted within the prostate gland. On 07/11/2019 he underwent TURBT/biopsy which showed papillary urothelial carcinoma, low-grade, grade 1, no muscle invasion seen patient underwent intravesical therapy with mitomycin on 07/11/2019 and follow-up scheduled every [address] Jerome, urologist. As far as prostate cancer is concern, CT PET scan done on 08/17/2019 showed no evidence of recurrent or residual malignancy, in right apex nodule measuring roughly 7 mm is FDG negative. His left lung scarring from the wedge resection [place] PET scan done on June 10, 2020 showed spiculated right apical nodule which is markedly avid, there is a surgical resection changes in the left lung apex. There is a focal moderate uptake near the hilar and of the resection site. There is a left apical 9 mm markedly avid nodule. There is a low left hilar focus of marked uptake which may correspond to small station 11 L node. But no focal uptake within the skeleton or pelvic or retroperitoneal lymphadenopathy. Mr Peter resumed Zoladex on 08/04/2020. Dr Robertson had discussed with Mr Rivero treatment options for progressive prostate cancer which include systemic chemotherapy with Taxotere versus ADT with Zoladex/Casodex or observation. Mr Rivero preferred resuming the Zoladex alone, as in the past he had a lot of side effects with ADT- especially hot flashes and generalized weakness and fatigue. It was also recommended that iif needed in future. Casodex can be added. And if there is a disease progression despite of ADT he may consider chemotherapy with Taxotere too. Additional CT scan finding was coronary artery disease most pronounced in the left anterior descending artery. He has had work up with cardiology and Mr Rivero reports everything looked good . He has had follow-up with Dr. Jerome in urology on 08/26/2020 and did have cystoscopy which revealed 1 small papillary recurrence on the dome that was completely fulgurated. There were a few areas of erythema but no distinct lesions. He will continue with surveillance cystoscopies as previously scheduled per Dr. Hein .Came for follow-up, denies any specific complaint except persistent night sweats not responding to Celexa, also complaining generalized weakness and fatigue, not very pleased with Zoladex but denies any new bony pains denies any nausea or vomiting also complaining of weight gain, patient denies consuming too many calories, blaming Zoladex for weight gain, overall patient is not pleased with quality of life while on Zoladex. Medications: [id number] 2 Capsule Oral daily, Lipitor 1 (40 mg) Tablet Oral daily, Multivitamin Adult 1 Tablet Oral daily, plexus 1 Capsule daily Allergies: No Known Allergies. Review of Systems: Review of Systems is not available for this patient. Vital Signs: Performed on Apr 12, 2021 10:08 Height - 66.00 in Weight - 206.2 lbs (HIGH) BSA - 2.03 sq.m BMI - 33.28 (HIGH) Temperature - 97.9 F (LOW) Pulse - 74 /min Respiration - 18 /min BP - 175/100 mm(hg) (HIGH) O2 Sat - 95 % (LOW) Pain - 0 Performance Status: 0 - Fully active, able to carry on all predisease activities without restrictions. (ECOG) Physical Examination: ENMT - No mouth sores, no thrush, no jaundice, Respiratory - Lungs are clear to auscultation, Cardiovascular - Regular rate and rhythm of heart, Abdomen - Soft, bowel sounds present, Extremities - No visible edema. Lab/Imaging: Most recent lab results are not available for this patient. Impression: Metastatic prostrate cancer involving bilateral lungs status post left thoracoscopy with wedge resection of left upper lobe pulmonary nodule on 11/27/2017 , history of prostate cancer diagnosed about 7 years ago status post brachytherapy #2 left thoracic vent placement skin due to persistent air leak discussed with the patient and his his disease status. 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 Treatment options including combined androgen blockade with Zoladex and bicalutamide versus observation. Both were discussed in detail and the patient opted for combined androgen blockade. All the side effect and possible benefit associated with Zoladex and bicalutamide were discussed in detail and patient expressed understanding and accepted the treatment. He Started on bicalutamide on 01/01/2018. Patient was advised not to take testosterone, in any form including in multivitamins. patient was reluctant to start Zoladex and his has done research. He did not want to pursue Zoladex initially to potential side effects especially fatigue. He was agreeable to continue the Casodex. He wants to complete Casodex to a total of 30 days, then wait 1 month and recheck labs and go from there . He tolerated the Casodex well and later on 08/24/18 agreed to try monthly dose of Zoladex , Which he continued till January 30, 2019 when he took his last dose now after that decided to stop ADT due to related side effects e.g. hot flashes, generalized weakness and fatigue interfering day-to-day activity. Repeat CT scan of chest done on 07/11/2018 showed right apical mass lesion with irregular margins now measures 1.5 x 1.9 x 2.2 cm compared to 1.4 x 1.4 x 1.3 on 05/03/2017 And nodule slightly posterior and medial to this lesion measured 1.1 compared to 1 cm prior exam A cavitary lesion persists in the superior Segment left lower lobe, adjacent to the major fissure now measures 1.2 x 2.4 cm compared to 1.3 x 1.6 cm on prior exam, no new pulmonary nodule seen next CT abdomen pelvis shows no evidence of neoplastic process in abdominal pelvis Bone scan shows no evidence of metastatic disease he was referred to radiation oncology for evaluation for role of SB RT in metastatic lung disease, patient was seen by Dr. Vo and due to location of the pulmonary nodule, SB RT was not offered due to risks involved. Patient underwent follow-up CT scan of chest done on 10/12/2018 which showed stable left suprahilar nodule and cavitary lesion in this suprasegmental left lower lobe along the fissure is unchanged too, whereas previously described pulmonary nodules in the right upper lobe at the apex have improved and also smaller in size. No mediastinal or hilar lymphadenopathy. Small esophageal hiatal hernia. Mr. Rivero had continued the Zoladex. His last Zoladex injection was 01/30/2019. He did have follow-up bone scan on 05/07/2019. He reported no evidence of metastatic disease to the bony skeleton. 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 Follow-up CT of the chest abdomen and pelvis with contrast was also obtained on 05/07/2019. There was further decreased in the size and density of the previous metastatic nodules in the right apex of the lung. Stable postoperative changes the left upper lobe lung rate no evidence of new foci or pulmonary metastatic disease. He has chronic emphysema. Resolved superior segment left lower lobe previous editorial lesion or infected bullous cavity. He has arteriosclerotic cardiovascular changes as well. CT of the abdomen and pelvis reported right posterior lateral bladder wall mass suspected urological evaluation suggested; prior radiation to the prostate gland; diverticulosis of the colon, most pronounced in the sigmoid region without radiographic evidence of diverticulitis; or chills carotid peripheral vascular changes. The area in the bladder is arising from the right posterior lateral wall of the bladder is suggestion of a foci intralumenal nodule measuring about 1.5 cm in diameter. The remainder of the urinary bladder is normal. Ration seeds were noted within the prostate gland.On July 11, 2019 he underwent TURBT/biopsy which showed papillary urothelial carcinoma, low-grade, grade 1, no muscle invasion seen patient underwent intravesical therapy with mitomycin on July 11, 2019 and then a follow-up planned with urology Dr. Jerome. His last appointment in urology was 08/26/2020 for cystoscopy. did see Mr Rivero after the [place] CT PET scan as well as PSA level drawn this morning shows PSA has gone up to 5.5 from 5.0 on May 11 and 3.5 on April 06, 2020 and 0.39 on November 18, 2019 e.g. doubling time is less than 6 months Clinically, patient is doing well with no new signs symptoms but his follow-up [place] CT PET showed multiple lesions in the lung more on the left side as well as right upper lobe spiculated lesion e.g. primary versus metastatic disease but no skeleton mets or pelvic/retroperitoneal lymphadenopathy and other incidental finding was significant coronary artery disease more pronounced in the left anterior descending artery. discussed with Mr Rivero treatment options for progressive prostate cancer which include systemic chemotherapy with Taxotere versus ADT with Zoladex/Casodex or observation. Mr Rivero preferred resuming the Zoladex alone, as in the past he had a lot of side effects with ADT- especially hot flashes and generalized weakness and fatigue. It was also recommended that iif needed in future. Casodex can be added. And if there is a disease progression despite of ADT he may consider chemotherapy with Taxotere too. recommended a trial of Zoladex every 3 months while monitoring his PSA. He also recommended follow-up ch[place] CT PET scan after 6 with special attention to right upper lobe spiculated lesion as he may have second primary. Mr Rivero resumed Zoladex on 07/10/2020. His PSA had decreased from 5.53 in June 14-3.34 on 08/04/2020 and it was 2.80 today. His testosterone total is 2.5 down from 297.4 in May 11, 2020. Plan: Discussed with patient regarding his labs PSA 2.29 compared to 2.22 previously testosterone less than 2.5 Clinically, patient doing reasonably well with no new signs symptoms history of disease progression his follow-up PSA is leveled off and stable at 2.29, compared to 2.22 previously and 2.80 prior to that, patient is having hard time tolerating Zoladex because of persistent and progressive night sweats, also complaining of generalized weakness and fatigue and weight gain, and overall not pleased with the related side effects, in the past when Zoladex was discontinued his symptoms resolved and quality of life improved, at this point, will hold his scheduled dose of Zoladex today and then he will return to clinic in 3 months with PSA if PSA remains stable, will continue to monitor if there is a worsening, may consider ADT again.At that time, will order CT scan of chest to assess pulmonary nodules seen on [place] CT PET scan and then there was a concern about her right upper lobe nodule to be a second primary Signed By: Guillermina Robertson M.D. <<Signature on File>>
== END 2021-04-12 06:06 | disposition home or self-care (01) ==
LOC: ONCMED 06:06
PROVIDERS: PCP Internal Medicine; Visit Provider Internal Medicine Hematology & Oncology
DX: C61 Malignant neoplasm of prostate (principal)
CPT/HCPCS: 99214

== ENCOUNTER 2021-08-16 11:16 | Outpatient (CLI) | payer MEDICARE, SELFPAY ==
--- NOTE | 2021-08-18 09:37 | ONC FU_ITS ---
Dr. Robertson follow up note Patient: Kwaku Rivero Unit #: [id number]: 1945 Dicatated By: Guillermina Robertson M.D.Date of Visit:Aug 16, 2021 Onc Med Follow-up/Prog Note History of Present Illness: Mr. Rivero is a 76-year-old gentleman with history of prostate cancer diagnosed about 9 years ago. At that time, he underwent brachytherapy with excellent response and his last PSA was checked in December 2016 and it was normal around 2. found to have multiple bilateral pulmonary nodules per CTPET, , for which he was evaluated by Dr. Batista and patient underwent left upper lobe lung resection on 11/27/2017 and final pathology report showed infiltrating adenocarcinoma consistent with prostate primary. He had agreed on plan of treatment including combined androgen androgen deprivation with Casodex and Zoladex. but later on decided not to take Zoladex because of his concern about cardiac related toxicity due to Zoladex. However on 08/24, he agreed to try monthly dose of zoladex and casodex on trial basis. He denied taking any testosterone supplements. f/u CT scan of chest done on 07/11/2018 showed a right apical mass lesion with irregular margins measuring 1.5 x 1.9 x 2.2 cm and another nodule slightly posterior and medial to this lesion measured 1.1 and a cavitary lesion persist in the superior segment of left upper lobe measure 1.2 x 2.4 cm Follow-up CT scanning of chest done on 10/12/2018 showed stable left suprahilar opacity measuring 1.5 x 1.8 x 2.5 cm is unchanged and left upper lobe nodule is also unchanged measuring 1.9 x 1.1 cm whereas previously described right upper lobe nodules have improved and are small in size. No hilar or mediastinal lymphadenopathy, small esophageal hiatal hernia. Mr. Rivero has continued the Zoladex. His last Zoladex injection was 01/30/2019 prior to today's visit. He stated overall he felt so bad due to hot sweats/flashes and he had significant fatigue. He stated that it was hard for him to do his normal daily activities as well as working. He states he was on the go constantly but was having more trouble with significant fatigue. The Zoladex was placed on hold at Mr Rivero's request due to horrible hot flashes and sweating . He stated it was impacting his quality of life. He did have follow-up bone scan on 05/07/2019. He reported no evidence of metastatic disease to the bony skeleton. 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 Follow-up CT of the chest abdomen and pelvis with contrast was also obtained on 05/07/2019. There was further decreased in the size and density of the previous metastatic nodules in the right apex of the lung. Stable postoperative changes the left upper lobe lung rate no evidence of new foci or pulmonary metastatic disease. He has chronic emphysema. Resolved superior segment left lower lobe previous editorial lesion or infected bullous cavity. He has arteriosclerotic cardiovascular changes as well. CT of the abdomen and pelvis reported right posterior lateral bladder wall mass suspected urological evaluation suggested; prior radiation to the prostate gland; diverticulosis of the colon, most pronounced in the sigmoid region without radiographic evidence of diverticulitis; or chills carotid peripheral vascular changes. The area in the bladder is arising from the right posterior lateral wall of the bladder is suggestion of a foci intralumenal nodule measuring about 1.5 cm in diameter. The remainder of the urinary bladder is normal. Radiation seeds were noted within the prostate gland. On 07/11/2019 he underwent TURBT/biopsy which showed papillary urothelial carcinoma, low-grade, grade 1, no muscle invasion seen patient underwent intravesical therapy with mitomycin on 07/11/2019 and follow-up scheduled every [address] Jerome, urologist. As far as prostate cancer is concern, CT PET scan done on 08/17/2019 showed no evidence of recurrent or residual malignancy, in right apex nodule measuring roughly 7 mm is FDG negative. His left lung scarring from the wedge resection [place] PET scan done on June 10, 2020 showed spiculated right apical nodule which is markedly avid, there is a surgical resection changes in the left lung apex. There is a focal moderate uptake near the hilar and of the resection site. There is a left apical 9 mm markedly avid nodule. There is a low left hilar focus of marked uptake which may correspond to small station 11 L node. But no focal uptake within the skeleton or pelvic or retroperitoneal lymphadenopathy. Mr Peter resumed Zoladex on 08/04/2020. Dr Robertson had discussed with Mr Rivero treatment options for progressive prostate cancer which include systemic chemotherapy with Taxotere versus ADT with Zoladex/Casodex or observation. Mr Rivero preferred resuming the Zoladex alone, as in the past he had a lot of side effects with ADT- especially hot flashes and generalized weakness and fatigue. It was also recommended that iif needed in future. Casodex can be added. And if there is a disease progression despite of ADT he may consider chemotherapy with Taxotere too. Additional CT scan finding was coronary artery disease most pronounced in the left anterior descending artery. He has had work up with cardiology and Mr Rivero reports everything looked good . He has had follow-up with Dr. Jerome in urology on 08/26/2020 and did have cystoscopy which revealed 1 small papillary recurrence on the dome that was completely fulgurated. There were a few areas of erythema but no distinct lesions. He will continue with surveillance cystoscopies as previously scheduled per Dr. Hein Came for follow-up, denies any specific complaints and in fact feeling much better since he is off Zoladex, more energetic, better mood, no dysuria or hematuria, no new bony pains, no fever chills, no nausea or vomiting, no diarrhea or constipation, appetite is good. Medications: [id number] 2 Capsule Oral daily, Lipitor 1 (40 mg) Tablet Oral daily, Multivitamin Adult 1 Tablet Oral daily, plexus 1 Capsule daily Allergies: No Known Allergies. Review of Systems: Review of Systems is not available for this patient. Vital Signs: Performed on Aug 16, 2021 13:06 Height - 66.00 in Weight - 210 lbs (HIGH) BSA - 2.04 sq.m BMI - 33.90 (HIGH) Temperature - 97.8 F (LOW) Pulse - 80 /min Respiration - 18 /min BP - 174/85 mm(hg) (HIGH) O2 Sat - 96 % Pain - 0 Fatigue - 8 Performance Status: 0 - Fully active, able to carry on all predisease activities without restrictions. (ECOG) Physical Examination: ENMT - No mouth sores, no thrush, no jaundice, Respiratory - Lungs are clear to auscultation, Cardiovascular - Regular rate and rhythm of heart, Abdomen - Soft, bowel sounds present, Extremities - No visible edema. Lab/Imaging: Most recent lab results are not available for this patient. Impression: Metastatic prostrate cancer involving bilateral lungs status post left thoracoscopy with wedge resection of left upper lobe pulmonary nodule on 11/27/2017 , history of prostate cancer diagnosed about 7 years ago status post brachytherapy #2 left thoracic vent placement skin due to persistent air leak discussed with the patient and his his disease status. 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 Treatment options including combined androgen blockade with Zoladex and bicalutamide versus observation. Both were discussed in detail and the patient opted for combined androgen blockade. All the side effect and possible benefit associated with Zoladex and bicalutamide were discussed in detail and patient expressed understanding and accepted the treatment. He Started on bicalutamide on 01/01/2018. Patient was advised not to take testosterone, in any form including in multivitamins. patient was reluctant to start Zoladex and his has done research. He did not want to pursue Zoladex initially to potential side effects especially fatigue. He was agreeable to continue the Casodex. He wants to complete Casodex to a total of 30 days, then wait 1 month and recheck labs and go from there . He tolerated the Casodex well and later on 08/24/18 agreed to try monthly dose of Zoladex , Which he continued till January 30, 2019 when he took his last dose now after that decided to stop ADT due to related side effects e.g. hot flashes, generalized weakness and fatigue interfering day-to-day activity. Repeat CT scan of chest done on 07/11/2018 showed right apical mass lesion with irregular margins now measures 1.5 x 1.9 x 2.2 cm compared to 1.4 x 1.4 x 1.3 on 05/03/2017 And nodule slightly posterior and medial to this lesion measured 1.1 compared to 1 cm prior exam A cavitary lesion persists in the superior Segment left lower lobe, adjacent to the major fissure now measures 1.2 x 2.4 cm compared to 1.3 x 1.6 cm on prior exam, no new pulmonary nodule seen next CT abdomen pelvis shows no evidence of neoplastic process in abdominal pelvis Bone scan shows no evidence of metastatic disease he was referred to radiation oncology for evaluation for role of SB RT in metastatic lung disease, patient was seen by Dr. Vo and due to location of the pulmonary nodule, SB RT was not offered due to risks involved. Patient underwent follow-up CT scan of chest done on 10/12/2018 which showed stable left suprahilar nodule and cavitary lesion in this suprasegmental left lower lobe along the fissure is unchanged too, whereas previously described pulmonary nodules in the right upper lobe at the apex have improved and also smaller in size. No mediastinal or hilar lymphadenopathy. Small esophageal hiatal hernia. Mr. Rivero had continued the Zoladex. His last Zoladex injection was 01/30/2019. He did have follow-up bone scan on 05/07/2019. He reported no evidence of metastatic disease to the bony skeleton. 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 Follow-up CT of the chest abdomen and pelvis with contrast was also obtained on 05/07/2019. There was further decreased in the size and density of the previous metastatic nodules in the right apex of the lung. Stable postoperative changes the left upper lobe lung rate no evidence of new foci or pulmonary metastatic disease. He has chronic emphysema. Resolved superior segment left lower lobe previous editorial lesion or infected bullous cavity. He has arteriosclerotic cardiovascular changes as well. CT of the abdomen and pelvis reported right posterior lateral bladder wall mass suspected urological evaluation suggested; prior radiation to the prostate gland; diverticulosis of the colon, most pronounced in the sigmoid region without radiographic evidence of diverticulitis; or chills carotid peripheral vascular changes. The area in the bladder is arising from the right posterior lateral wall of the bladder is suggestion of a foci intralumenal nodule measuring about 1.5 cm in diameter. The remainder of the urinary bladder is normal. Ration seeds were noted within the prostate gland.On July 11, 2019 he underwent TURBT/biopsy which showed papillary urothelial carcinoma, low-grade, grade 1, no muscle invasion seen patient underwent intravesical therapy with mitomycin on July 11, 2019 and then a follow-up planned with urology Dr. Jerome. His last appointment in urology was 08/26/2020 for cystoscopy. did see Mr Rivero after the choline CT PET scan as well as PSA level drawn this morning shows PSA has gone up to 5.5 from 5.0 on May 11 and 3.5 on April 06, 2020 and 0.39 on November 18, 2019 e.g. doubling time is less than 6 months Clinically, patient is doing well with no new signs symptoms but his follow-up ch[place] CT PET showed multiple lesions in the lung more on the left side as well as right upper lobe spiculated lesion e.g. primary versus metastatic disease but no skeleton mets or pelvic/retroperitoneal lymphadenopathy and other incidental finding was significant coronary artery disease more pronounced in the left anterior descending artery. discussed with Mr Rivero treatment options for progressive prostate cancer which include systemic chemotherapy with Taxotere versus ADT with Zoladex/Casodex or observation. Mr Rivero preferred resuming the Zoladex alone, as in the past he had a lot of side effects with ADT- especially hot flashes and generalized weakness and fatigue. It was also recommended that iif needed in future. Casodex can be added. And if there is a disease progression despite of ADT he may consider chemotherapy with Taxotere too. recommended a trial of Zoladex every 3 months while monitoring his PSA. He also recommended follow-up choline CT PET scan after 6 with special attention to right upper lobe spiculated lesion as he may have second primary. Mr Rivero resumed Zoladex on 07/10/2020. His PSA had decreased from 5.53 in June 14-3.34 on 08/04/2020 and it was 2.80 today. His testosterone total is 2.5 down from 297.4 in May 11, 2020. Plan: Discussed with patient regarding his labs his PSA is 3.21 compared to 2.29 on April 06, 2021 Clinically, patient has no new signs symptom suggestive of disease progression but his PSA continues to go up, at this point, patient was recommended PSMA scan, which is somewhat more sensitive for detecting metastatic prostate cancer compared to choline PET scan. Patient said he will think about, patient was advised in case PSMA scan shows any focal disease activity which may be amenable to stereotactic radiation therapy or if he has diffuse mets, may need early intervention, intermittent versus continuous ADT or other systemic therapy. Patient return to clinic in 1 month with PSA, if PSA continues to go up, then patient may consider PSMA scan. Signed By: Guillermina Robertson M.D. <<Signature on File>>
== END 2021-08-16 11:17 | disposition home or self-care (01) ==
LOC: ONCMED 11:25
PROVIDERS: PCP Internal Medicine; Visit Provider Internal Medicine Hematology & Oncology
DX: C61 Malignant neoplasm of prostate (principal); C78.01 Secondary malignant neoplasm of right lung; C78.02 Secondary malignant neoplasm of left lung; K44.9 Diaphragmatic hernia without obstruction or gangrene; I25.10 Atherosclerotic heart disease of native coronary artery without angina pectoris; E29.1 Testicular hypofunction; Z79.818 Long term (current) use of other agents affecting estrogen receptors and estrogen levels; Z92.21 Personal history of antineoplastic chemotherapy
CPT/HCPCS: 36415; 84153; 99214

== ENCOUNTER 2021-09-27 08:03 | Outpatient (CLI) | payer MEDICARE, SELFPAY | END 2021-09-27 08:04 | disposition home or self-care (01) | PROVIDERS: PCP Internal Medicine; Visit Provider Internal Medicine Hematology & Oncology | DX: C61 Malignant neoplasm of prostate (principal) | CPT/HCPCS: 36415; 84153 ==

== ENCOUNTER 2021-09-28 06:22 | Outpatient (CLI) | payer MEDICARE, SELFPAY ==
--- NOTE | 2021-09-28 14:53 | ONC FU_ITS ---
Dr. Robertson follow up note Patient: Kwaku Lopez Unit #: [id number]: [id number] Dicatated By: Guillermina Robertson M.D.Date of Visit:Sep 28, 2021 Onc Med Follow-up/Prog Note History of Present Illness: Mr. Lopez is a 76-year-old gentleman with history of prostate cancer diagnosed about 9 years ago. At that time, he underwent brachytherapy with excellent response and his last PSA was checked in December 2016 and it was normal around 2. found to have multiple bilateral pulmonary nodules per CTPET, , for which he was evaluated by Dr. Batista and patient underwent left upper lobe lung resection on 11/27/2017 and final pathology report showed infiltrating adenocarcinoma consistent with prostate primary. He had agreed on plan of treatment including combined androgen androgen deprivation with Casodex and Zoladex. but later on decided not to take Zoladex because of his concern about cardiac related toxicity due to Zoladex. However on 08/24, he agreed to try monthly dose of zoladex and casodex on trial basis. He denied taking any testosterone supplements. f/u CT scan of chest done on 07/11/2018 showed a right apical mass lesion with irregular margins measuring 1.5 x 1.9 x 2.2 cm and another nodule slightly posterior and medial to this lesion measured 1.1 and a cavitary lesion persist in the superior segment of left upper lobe measure 1.2 x 2.4 cm Follow-up CT scanning of chest done on 10/12/2018 showed stable left suprahilar opacity measuring 1.5 x 1.8 x 2.5 cm is unchanged and left upper lobe nodule is also unchanged measuring 1.9 x 1.1 cm whereas previously described right upper lobe nodules have improved and are small in size. No hilar or mediastinal lymphadenopathy, small esophageal hiatal hernia. Mr. Lopez has continued the Zoladex. His last Zoladex injection was 01/30/2019 prior to today's visit. He stated overall he felt so bad due to hot sweats/flashes and he had significant fatigue. He stated that it was hard for him to do his normal daily activities as well as working. He states he was on the go constantly but was having more trouble with significant fatigue. The Zoladex was placed on hold at Mr Lopez's request due to horrible hot flashes and sweating . He stated it was impacting his quality of life. He did have follow-up bone scan on 05/07/2019. He reported no evidence of metastatic disease to the bony skeleton. 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 Follow-up CT of the chest abdomen and pelvis with contrast was also obtained on 05/07/2019. There was further decreased in the size and density of the previous metastatic nodules in the right apex of the lung. Stable postoperative changes the left upper lobe lung rate no evidence of new foci or pulmonary metastatic disease. He has chronic emphysema. Resolved superior segment left lower lobe previous editorial lesion or infected bullous cavity. He has arteriosclerotic cardiovascular changes as well. CT of the abdomen and pelvis reported right posterior lateral bladder wall mass suspected urological evaluation suggested; prior radiation to the prostate gland; diverticulosis of the colon, most pronounced in the sigmoid region without radiographic evidence of diverticulitis; or chills carotid peripheral vascular changes. The area in the bladder is arising from the right posterior lateral wall of the bladder is suggestion of a foci intralumenal nodule measuring about 1.5 cm in diameter. The remainder of the urinary bladder is normal. Radiation seeds were noted within the prostate gland. On 07/11/2019 he underwent TURBT/biopsy which showed papillary urothelial carcinoma, low-grade, grade 1, no muscle invasion seen patient underwent intravesical therapy with mitomycin on 07/11/2019 and follow-up scheduled every [address] Jerome, urologist. As far as prostate cancer is concern, CT PET scan done on 08/17/2019 showed no evidence of recurrent or residual malignancy, in right apex nodule measuring roughly 7 mm is FDG negative. His left lung scarring from the wedge resection [place] PET scan done on June 10, 2020 showed spiculated right apical nodule which is markedly avid, there is a surgical resection changes in the left lung apex. There is a focal moderate uptake near the hilar and of the resection site. There is a left apical 9 mm markedly avid nodule. There is a low left hilar focus of marked uptake which may correspond to small station 11 L node. But no focal uptake within the skeleton or pelvic or retroperitoneal lymphadenopathy. Mr lopez resumed Zoladex on 08/04/2020. had discussed with Mr Lopez treatment options for progressive prostate cancer which include systemic chemotherapy with Taxotere versus ADT with Zoladex/Casodex or observation. Mr Lopez preferred resuming the Zoladex alone, as in the past he had a lot of side effects with ADT- especially hot flashes and generalized weakness and fatigue. It was also recommended that iif needed in future. Casodex can be added. And if there is a disease progression despite of ADT he may consider chemotherapy with Taxotere too.Patient took his last Zoladex on January 18, 2021 and decided to stop treatment because of related side effects, knowing the risk versus benefits and opted for observation alone. Additional CT scan finding was coronary artery disease most pronounced in the left anterior descending artery. He has had work up with cardiology and Mr Lopez reports everything looked good . He has had follow-up with Dr. Jerome in urology on 08/26/2020 and did have cystoscopy which revealed 1 small papillary recurrence on the dome that was completely fulgurated. There were a few areas of erythema but no distinct lesions. He will continue with surveillance cystoscopies as previously scheduled per Dr. Hein Came for follow-up, denies any specific complaint except dyspnea on exertion, which is a chronic problem, as per patient he was evaluated by cardiology and nothing wrong was found with his heart and also has seen pulmonology in the past. Denies any new bony pains, denies any hemoptysis hematemesis denies any shortness of breath at rest, denies any palpitation denies any chest pain, denies any hematuria or dysuria. Overall, feeling well Medications: Ypoo-Fefn-Ubrkhz 2 Capsule Oral daily, Lipitor 1 (40 mg) Tablet Oral daily, Multivitamin Adult 1 Tablet Oral daily, plexus 1 Capsule daily Allergies: No Known Allergies. Review of Systems: Review of Systems is not available for this patient. Vital Signs: Performed on Sep 28, 2021 08:26 Height - 66.00 in Weight - 208.4 lbs (LOW) BSA - 2.04 sq.m BMI - 33.64 (HIGH) Temperature - 96.9 F (LOW) Pulse - 80 /min Respiration - 20 /min BP - 163/98 mm(hg) (HIGH) O2 Sat - 95 % (LOW) Pain - 0 Performance Status: 0 - Fully active, able to carry on all predisease activities without restrictions. (ECOG) Physical Examination: ENMT - No mouth sores, no thrush, no jaundice, Respiratory - Lungs are clear to auscultation, Cardiovascular - Regular rate and rhythm of heart, Abdomen - Soft, bowel sounds present, Extremities - No visible edema. Lab/Imaging: Most recent lab results are not available for this patient. Impression: Metastatic prostrate cancer involving bilateral lungs status post left thoracoscopy with wedge resection of left upper lobe pulmonary nodule on 11/27/2017 , history of prostate cancer diagnosed about 7 years ago status post brachytherapy #2 left thoracic vent placement skin due to persistent air leak discussed with the patient and his his disease status. 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 Treatment options including combined androgen blockade with Zoladex and bicalutamide versus observation. Both were discussed in detail and the patient opted for combined androgen blockade. All the side effect and possible benefit associated with Zoladex and bicalutamide were discussed in detail and patient expressed understanding and accepted the treatment. He Started on bicalutamide on 01/01/2018. Patient was advised not to take testosterone, in any form including in multivitamins. patient was reluctant to start Zoladex and his has done research. He did not want to pursue Zoladex initially to potential side effects especially fatigue. He was agreeable to continue the Casodex. He wants to complete Casodex to a total of 30 days, then wait 1 month and recheck labs and go from there . He tolerated the Casodex well and later on 08/24/18 agreed to try monthly dose of Zoladex , Which he continued till January 30, 2019 when he took his last dose now after that decided to stop ADT due to related side effects e.g. hot flashes, generalized weakness and fatigue interfering day-to-day activity. Repeat CT scan of chest done on 07/11/2018 showed right apical mass lesion with irregular margins now measures 1.5 x 1.9 x 2.2 cm compared to 1.4 x 1.4 x 1.3 on 05/03/2017 And nodule slightly posterior and medial to this lesion measured 1.1 compared to 1 cm prior exam A cavitary lesion persists in the superior Segment left lower lobe, adjacent to the major fissure now measures 1.2 x 2.4 cm compared to 1.3 x 1.6 cm on prior exam, no new pulmonary nodule seen next CT abdomen pelvis shows no evidence of neoplastic process in abdominal pelvis Bone scan shows no evidence of metastatic disease he was referred to radiation oncology for evaluation for role of SB RT in metastatic lung disease, patient was seen by Dr. Vo and due to location of the pulmonary nodule, SB RT was not offered due to risks involved. Patient underwent follow-up CT scan of chest done on 10/12/2018 which showed stable left suprahilar nodule and cavitary lesion in this suprasegmental left lower lobe along the fissure is unchanged too, whereas previously described pulmonary nodules in the right upper lobe at the apex have improved and also smaller in size. No mediastinal or hilar lymphadenopathy. Small esophageal hiatal hernia. Mr. Lopez had continued the Zoladex. His last Zoladex injection was 01/30/2019. He did have follow-up bone scan on 05/07/2019. He reported no evidence of metastatic disease to the bony skeleton. 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 Follow-up CT of the chest abdomen and pelvis with contrast was also obtained on 05/07/2019. There was further decreased in the size and density of the previous metastatic nodules in the right apex of the lung. Stable postoperative changes the left upper lobe lung rate no evidence of new foci or pulmonary metastatic disease. He has chronic emphysema. Resolved superior segment left lower lobe previous editorial lesion or infected bullous cavity. He has arteriosclerotic cardiovascular changes as well. CT of the abdomen and pelvis reported right posterior lateral bladder wall mass suspected urological evaluation suggested; prior radiation to the prostate gland; diverticulosis of the colon, most pronounced in the sigmoid region without radiographic evidence of diverticulitis; or chills carotid peripheral vascular changes. The area in the bladder is arising from the right posterior lateral wall of the bladder is suggestion of a foci intralumenal nodule measuring about 1.5 cm in diameter. The remainder of the urinary bladder is normal. Ration seeds were noted within the prostate gland.On July 11, 2019 he underwent TURBT/biopsy which showed papillary urothelial carcinoma, low-grade, grade 1, no muscle invasion seen patient underwent intravesical therapy with mitomycin on July 11, 2019 and then a follow-up planned with urology Dr. Jerome. His last appointment in urology was 08/26/2020 for cystoscopy. did see Mr Lopez after the [place] CT PET scan as well as PSA level drawn this morning shows PSA has gone up to 5.5 from 5.0 on May 11 and 3.5 on April 06, 2020 and 0.39 on November 18, 2019 e.g. doubling time is less than 6 months Clinically, patient is doing well with no new signs symptoms but his follow-up [place] CT PET showed multiple lesions in the lung more on the left side as well as right upper lobe spiculated lesion e.g. primary versus metastatic disease but no skeleton mets or pelvic/retroperitoneal lymphadenopathy and other incidental finding was significant coronary artery disease more pronounced in the left anterior descending artery. discussed with Mr Lopez treatment options for progressive prostate cancer which include systemic chemotherapy with Taxotere versus ADT with Zoladex/Casodex or observation. Mr Lopez preferred resuming the Zoladex alone, as in the past he had a lot of side effects with ADT- especially hot flashes and generalized weakness and fatigue. It was also recommended that iif needed in future. Casodex can be added. And if there is a disease progression despite of ADT he may consider chemotherapy with Taxotere too. recommended a trial of Zoladex every 3 months while monitoring his PSA. He also recommended follow-up [place] CT PET scan after 6 with special attention to right upper lobe spiculated lesion as he may have second primary. Mr Lopez resumed Zoladex on 07/10/2020. His PSA had decreased from 5.53 in June 14-3.34 on 08/04/2020 and it was 2.80 today. His testosterone total is 2.5 down from 297.4 in May 11, 2020. Plan: Discussed with patient regarding his lab PSA is 3.04 compared to 3.21 on August 16, 2021 Clinically, patient doing well with no new signs symptom suggestive of disease progression, no new symptoms, his follow-up labs shows PSA is stable, rather with some improvement, at this point we will continue to monitor return to clinic in 1 month with PSA. As far as dyspnea on exertion is concerned, patient was advised to see pulmonology for evaluation but patient will consider if there is no improvement. He will return to clinic 1 month with PSA and CBC to rule out anemia contributing to dyspnea on exertion. And chest x-ray pulmonary pathology/changes causing dyspnea on exertion, His pulse ox checked today was 95% at rest and on exertion was 93% Signed By: Guillermina Robertson M.D. <<Signature on File>>
== END 2021-09-28 06:23 | disposition home or self-care (01) ==
LOC: ONCMED 06:23
PROVIDERS: PCP Internal Medicine; Visit Provider Internal Medicine Hematology & Oncology
DX: C78.02 Secondary malignant neoplasm of left lung (principal); Z85.46 Personal history of malignant neoplasm of prostate; J93.82 Other air leak; R06.00 Dyspnea, unspecified
CPT/HCPCS: 99214

== ENCOUNTER 2021-09-30 07:57 | Outpatient (CLI) | payer MEDICARE, SELFPAY ==
--- NOTE | 2021-09-30 | XR_ITS ---
WS: [id number] PROCEDURE: XR chest 2V* [id number] CLINICAL INFORMATION: MALIGNANT NEOPLASM OF PROSTATE, LUNG METS COMPARISON: FINDINGS: Heart: Cardiomegaly. Aortic calcification. Mediastinal clips. Lungs: Moderate chronic emphysematous changes. No acute pulmonary infiltrates. No focal pneumonia. Bones: Normal visualized bony structures. XR/XR chest 2V* [id number] IMPRESSION: No acute chest findings
== END 2021-09-30 07:58 | disposition home or self-care (01) ==
PROVIDERS: PCP Internal Medicine; Visit Provider Internal Medicine Hematology & Oncology
DX: R06.02 Shortness of breath (principal); C61 Malignant neoplasm of prostate; C78.01 Secondary malignant neoplasm of right lung
CPT/HCPCS: 71046

== ENCOUNTER → 2021-10-07 08:14 | Outpatient (BNVA) | payer MEDICARE, SELFPAY | PROVIDERS: PCP Internal Medicine; Visit Provider Urology | DX: C67.1 Malignant neoplasm of dome of bladder (principal); C61 Malignant neoplasm of prostate | CPT/HCPCS: 81003 ==

== ENCOUNTER 2021-11-08 07:40 | Outpatient (CLI) | payer MEDICARE, SELFPAY ==
[2021-11-08 08:20] LABS: Basophils % 0.6 %; Eosinophils # 0.2 10^3/uL (0.0-0.8); Eosinophils % 2.4 %; Hematocrit 46.9 % (42.0-52.0); Lymphocytes # 1.6 10^3/uL (0.8-4.8); Lymphocytes % 26.5 %; Mean Corpuscular HGB Conc 34.1 g/dL (30.0-36.0); Mean Corpuscular Hemoglobin 31.8 pg (28.0-34.0); Mean Corpuscular Volume 93.2 fl (80-94); Mean Platelet Volume 9.9 fL (7.4-10.4); Monocytes # 0.5 10^3/uL (0.2-0.9); Monocytes % 8.4 %; Neutrophils # 3.78 10^3/uL (1.8-7.7); Neutrophils % 61.5 %; Nucleated Red Blood Cells % 0 %; Platelet Count 232 10^3/cmm (130-400); Red Blood Count 5.03 10^6/uL (4.1-5.3); Red Cell Distribution Width 11.9 % (12.1-15.1); White Blood Count 6.2 10^3/uL (4.0-10.0)
== END 2021-11-08 07:41 | disposition home or self-care (01) ==
LOC: ONCMED 07:44
PROVIDERS: PCP Internal Medicine; Visit Provider Internal Medicine Hematology & Oncology
DX: C61 Malignant neoplasm of prostate (principal)
CPT/HCPCS: 36415; 84153; 85025

== ENCOUNTER 2021-11-09 08:40 | Outpatient (CLI) | payer MEDICARE, SELFPAY ==
--- NOTE | 2021-11-09 15:58 | ONC FU_ITS ---
Dr. Robertson follow up note Patient: Kwaku Lopez Unit #: [id number]: [id number] Dicatated By: Guillermina Robertson M.D.Date of Visit:Nov 09, 2021 Onc Med Follow-up/Prog Note History of Present Illness: Mr. Lopez is a 76-year-old gentleman with history of prostate cancer diagnosed about 9 years ago. At that time, he underwent brachytherapy with excellent response and his last PSA was checked in December 2016 and it was normal around 2. found to have multiple bilateral pulmonary nodules per CTPET, , for which he was evaluated by Dr. Batista and patient underwent left upper lobe lung resection on 11/27/2017 and final pathology report showed infiltrating adenocarcinoma consistent with prostate primary. He had agreed on plan of treatment including combined androgen androgen deprivation with Casodex and Zoladex. but later on decided not to take Zoladex because of his concern about cardiac related toxicity due to Zoladex. However on 08/24, he agreed to try monthly dose of zoladex and casodex on trial basis. He denied taking any testosterone supplements. f/u CT scan of chest done on 07/11/2018 showed a right apical mass lesion with irregular margins measuring 1.5 x 1.9 x 2.2 cm and another nodule slightly posterior and medial to this lesion measured 1.1 and a cavitary lesion persist in the superior segment of left upper lobe measure 1.2 x 2.4 cm Follow-up CT scanning of chest done on 10/12/2018 showed stable left suprahilar opacity measuring 1.5 x 1.8 x 2.5 cm is unchanged and left upper lobe nodule is also unchanged measuring 1.9 x 1.1 cm whereas previously described right upper lobe nodules have improved and are small in size. No hilar or mediastinal lymphadenopathy, small esophageal hiatal hernia. Mr. Lopez has continued the Zoladex. His last Zoladex injection was 01/30/2019 prior to today's visit. He stated overall he felt so bad due to hot sweats/flashes and he had significant fatigue. He stated that it was hard for him to do his normal daily activities as well as working. He states he was on the go constantly but was having more trouble with significant fatigue. The Zoladex was placed on hold at Mr Lopez's request due to horrible hot flashes and sweating . He stated it was impacting his quality of life. He did have follow-up bone scan on 05/07/2019. He reported no evidence of metastatic disease to the bony skeleton. 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 Follow-up CT of the chest abdomen and pelvis with contrast was also obtained on 05/07/2019. There was further decreased in the size and density of the previous metastatic nodules in the right apex of the lung. Stable postoperative changes the left upper lobe lung rate no evidence of new foci or pulmonary metastatic disease. He has chronic emphysema. Resolved superior segment left lower lobe previous editorial lesion or infected bullous cavity. He has arteriosclerotic cardiovascular changes as well. CT of the abdomen and pelvis reported right posterior lateral bladder wall mass suspected urological evaluation suggested; prior radiation to the prostate gland; diverticulosis of the colon, most pronounced in the sigmoid region without radiographic evidence of diverticulitis; or chills carotid peripheral vascular changes. The area in the bladder is arising from the right posterior lateral wall of the bladder is suggestion of a foci intralumenal nodule measuring about 1.5 cm in diameter. The remainder of the urinary bladder is normal. Radiation seeds were noted within the prostate gland. On 07/11/2019 he underwent TURBT/biopsy which showed papillary urothelial carcinoma, low-grade, grade 1, no muscle invasion seen patient underwent intravesical therapy with mitomycin on 07/11/2019 and follow-up scheduled every [address] Jerome, urologist. As far as prostate cancer is concern, CT PET scan done on 08/17/2019 showed no evidence of recurrent or residual malignancy, in right apex nodule measuring roughly 7 mm is FDG negative. His left lung scarring from the wedge resection [place] PET scan done on June 10, 2020 showed spiculated right apical nodule which is markedly avid, there is a surgical resection changes in the left lung apex. There is a focal moderate uptake near the hilar and of the resection site. There is a left apical 9 mm markedly avid nodule. There is a low left hilar focus of marked uptake which may correspond to small station 11 L node. But no focal uptake within the skeleton or pelvic or retroperitoneal lymphadenopathy. Mr lopez resumed Zoladex on 08/04/2020. had discussed with Mr Lopez treatment options for progressive prostate cancer which include systemic chemotherapy with Taxotere versus ADT with Zoladex/Casodex or observation. Mr Lopez preferred resuming the Zoladex alone, as in the past he had a lot of side effects with ADT- especially hot flashes and generalized weakness and fatigue. It was also recommended that iif needed in future. Casodex can be added. And if there is a disease progression despite of ADT he may consider chemotherapy with Taxotere too.Patient took his last Zoladex on January 18, 2021 and decided to stop treatment because of related side effects, knowing the risk versus benefits and opted for observation alone. Additional CT scan finding was coronary artery disease most pronounced in the left anterior descending artery. He has had work up with cardiology and Mr Lopez reports everything looked good . He has had follow-up with Dr. Jerome in urology on 08/26/2020 and did have cystoscopy which revealed 1 small papillary recurrence on the dome that was completely fulgurated. There were a few areas of erythema but no distinct lesions. He will continue with surveillance cystoscopies as previously scheduled per Dr. Hein Chest x-ray done on September 30, 2021 shows moderate chronic emphysematous changes, no acute infiltrates normal visualized bony structures, cardiomegaly Came for follow-up, denies any specific complaint except generalized weakness and fatigue and now with weight gain. But no new bony pains, no melena hematochezia no hemoptysis hematemesis, no dysuria or hematuria Medications: Quzk-Olnq-Rkahpr 2 Capsule Oral daily, Lipitor 1 (40 mg) Tablet Oral daily, Multivitamin Adult 1 Tablet Oral daily, plexus 1 Capsule daily Allergies: No Known Allergies. Review of Systems: Review of Systems is not available for this patient. Vital Signs: Performed on Nov 09, 2021 13:44 Height - 66.00 in Weight - 213.4 lbs (HIGH) BSA - 2.06 sq.m BMI - 34.44 (HIGH) Temperature - 97.6 F (LOW) Pulse - 73 /min Respiration - 18 /min BP - 163/97 mm(hg) (HIGH) O2 Sat - 97 % Pain - 0 Fatigue - 7 Performance Status: 0 - Fully active, able to carry on all predisease activities without restrictions. (ECOG) Physical Examination: ENMT - No mouth sores, no thrush, no jaundice, Respiratory - Lungs are clear to auscultation, Cardiovascular - Regular rate and rhythm of heart, Abdomen - Soft, bowel sounds present, Extremities - No visible edema. Lab/Imaging: Most recent lab results are not available for this patient. Impression: Metastatic prostrate cancer involving bilateral lungs status post left thoracoscopy with wedge resection of left upper lobe pulmonary nodule on 11/27/2017 , history of prostate cancer diagnosed about 7 years ago status post brachytherapy #2 left thoracic vent placement skin due to persistent air leak discussed with the patient and his his disease status. 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 Treatment options including combined androgen blockade with Zoladex and bicalutamide versus observation. Both were discussed in detail and the patient opted for combined androgen blockade. All the side effect and possible benefit associated with Zoladex and bicalutamide were discussed in detail and patient expressed understanding and accepted the treatment. He Started on bicalutamide on 01/01/2018. Patient was advised not to take testosterone, in any form including in multivitamins. patient was reluctant to start Zoladex and his has done research. He did not want to pursue Zoladex initially to potential side effects especially fatigue. He was agreeable to continue the Casodex. He wants to complete Casodex to a total of 30 days, then wait 1 month and recheck labs and go from there . He tolerated the Casodex well and later on 08/24/18 agreed to try monthly dose of Zoladex , Which he continued till January 30, 2019 when he took his last dose now after that decided to stop ADT due to related side effects e.g. hot flashes, generalized weakness and fatigue interfering day-to-day activity. Repeat CT scan of chest done on 07/11/2018 showed right apical mass lesion with irregular margins now measures 1.5 x 1.9 x 2.2 cm compared to 1.4 x 1.4 x 1.3 on 05/03/2017 And nodule slightly posterior and medial to this lesion measured 1.1 compared to 1 cm prior exam A cavitary lesion persists in the superior Segment left lower lobe, adjacent to the major fissure now measures 1.2 x 2.4 cm compared to 1.3 x 1.6 cm on prior exam, no new pulmonary nodule seen next CT abdomen pelvis shows no evidence of neoplastic process in abdominal pelvis Bone scan shows no evidence of metastatic disease he was referred to radiation oncology for evaluation for role of SB RT in metastatic lung disease, patient was seen by Dr. Vo and due to location of the pulmonary nodule, SB RT was not offered due to risks involved. Patient underwent follow-up CT scan of chest done on 10/12/2018 which showed stable left suprahilar nodule and cavitary lesion in this suprasegmental left lower lobe along the fissure is unchanged too, whereas previously described pulmonary nodules in the right upper lobe at the apex have improved and also smaller in size. No mediastinal or hilar lymphadenopathy. Small esophageal hiatal hernia. Mr. Lopez had continued the Zoladex. His last Zoladex injection was 01/30/2019. He did have follow-up bone scan on 05/07/2019. He reported no evidence of metastatic disease to the bony skeleton. 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 Follow-up CT of the chest abdomen and pelvis with contrast was also obtained on 05/07/2019. There was further decreased in the size and density of the previous metastatic nodules in the right apex of the lung. Stable postoperative changes the left upper lobe lung rate no evidence of new foci or pulmonary metastatic disease. He has chronic emphysema. Resolved superior segment left lower lobe previous editorial lesion or infected bullous cavity. He has arteriosclerotic cardiovascular changes as well. CT of the abdomen and pelvis reported right posterior lateral bladder wall mass suspected urological evaluation suggested; prior radiation to the prostate gland; diverticulosis of the colon, most pronounced in the sigmoid region without radiographic evidence of diverticulitis; or chills carotid peripheral vascular changes. The area in the bladder is arising from the right posterior lateral wall of the bladder is suggestion of a foci intralumenal nodule measuring about 1.5 cm in diameter. The remainder of the urinary bladder is normal. Ration seeds were noted within the prostate gland.On July 11, 2019 he underwent TURBT/biopsy which showed papillary urothelial carcinoma, low-grade, grade 1, no muscle invasion seen patient underwent intravesical therapy with mitomycin on July 11, 2019 and then a follow-up planned with urology Dr. Jerome. His last appointment in urology was 08/26/2020 for cystoscopy. did see Mr Lopez after the [place] CT PET scan as well as PSA level drawn this morning shows PSA has gone up to 5.5 from 5.0 on May 11 and 3.5 on April 06, 2020 and 0.39 on November 18, 2019 e.g. doubling time is less than 6 months Clinically, patient is doing well with no new signs symptoms but his follow-up [place] CT PET showed multiple lesions in the lung more on the left side as well as right upper lobe spiculated lesion e.g. primary versus metastatic disease but no skeleton mets or pelvic/retroperitoneal lymphadenopathy and other incidental finding was significant coronary artery disease more pronounced in the left anterior descending artery. discussed with Mr Lopez treatment options for progressive prostate cancer which include systemic chemotherapy with Taxotere versus ADT with Zoladex/Casodex or observation. Mr Lopez preferred resuming the Zoladex alone, as in the past he had a lot of side effects with ADT- especially hot flashes and generalized weakness and fatigue. It was also recommended that iif needed in future. Casodex can be added. And if there is a disease progression despite of ADT he may consider chemotherapy with Taxotere too. recommended a trial of Zoladex every 3 months while monitoring his PSA. He also recommended follow-up ch[place] CT PET scan after 6 with special attention to right upper lobe spiculated lesion as he may have second primary. Mr Lopez resumed Zoladex on 07/10/2020. His PSA had decreased from 5.53 in June 14-3.34 on 08/04/2020 and it was 2.80 today. His testosterone total is 2.5 down from 297.4 in May 11, 2020. Plan: Discussed with patient regarding his labs, white blood count 6.2 hemoglobin 16 hematocrit 46.9 platelets 232,000 PSA 4.38 compared to 3.04 previously Clinically, patient is done well with no new signs symptom suggestive of disease progression his follow-up PSA level has gone up to 4.38 compared to 3.04 previously on September 27, 2021, in the past, treated with intermittent ADT as last dose of Zoladex was on January 18, 2021. At that time his PSA was 2.22 and testosterone level was less than 2.5. At this point, we will continue to monitor and repeat his PSA in a month to confirm upward trend, and if it does, will consider starting him on short course of Zoladex. As far as generalized weakness and fatigue is concerned probably due to underlying sleep apnea, patient was recommended sleep study to confirm but patient declined knowing the risk versus benefits. Recent chest x-ray for dyspnea on exertion showed no acute infiltrate but underlying chronic emphysematous changes and cardiomegaly, patient is scheduled to see cardiology. Return to clinic in 1 month with PSA Signed By: Guillermina Robertson M.D. <<Signature on File>>
== END 2021-11-09 08:41 | disposition home or self-care (01) ==
LOC: ONCMED 08:40
PROVIDERS: PCP Internal Medicine; Visit Provider Internal Medicine Hematology & Oncology
DX: C78.02 Secondary malignant neoplasm of left lung (principal); C78.01 Secondary malignant neoplasm of right lung; C61 Malignant neoplasm of prostate
CPT/HCPCS: 99214

== ENCOUNTER → 2022-01-03 14:22 | Outpatient (BNVA) | payer MEDICARE, SELFPAY | PROVIDERS: PCP Internal Medicine; Visit Provider Internal Medicine | DX: E78.5 Hyperlipidemia, unspecified (principal); I25.10 Atherosclerotic heart disease of native coronary artery without angina pectoris; Z87.891 Personal history of nicotine dependence | CPT/HCPCS: 99213 ==

== ENCOUNTER 2022-04-20 13:33 | Oncology outpatient (recurring) (ONCR) | payer MEDICARE, SELFPAY | END 2022-04-24 23:59 | disposition home or self-care (01) | PROVIDERS: PCP Internal Medicine; Visit Provider Internal Medicine Hematology & Oncology | DX: C61 Malignant neoplasm of prostate (principal); C78.01 Secondary malignant neoplasm of right lung; C78.02 Secondary malignant neoplasm of left lung; R53.83 Other fatigue; R53.1 Weakness; Z79.818 Long term (current) use of other agents affecting estrogen receptors and estrogen levels; Z79.899 Other long term (current) drug therapy; Z87.891 Personal history of nicotine dependence; Z85.51 Personal history of malignant neoplasm of bladder; Z92.21 Personal history of antineoplastic chemotherapy; I25.10 Atherosclerotic heart disease of native coronary artery without angina pectoris; I51.7 Cardiomegaly | CPT/HCPCS: 36415; 84153; 99214 ==

== ENCOUNTER → 2022-05-09 14:55 | Outpatient (BNVA) | payer MEDICARE, SELFPAY | PROVIDERS: PCP Internal Medicine; Visit Provider Urology | DX: C67.2 Malignant neoplasm of lateral wall of bladder (principal); C67.1 Malignant neoplasm of dome of bladder; N99.112 Postprocedural membranous urethral stricture, male | CPT/HCPCS: 52281; 81003 ==

== ENCOUNTER 2022-05-23 10:20 | Oncology outpatient (recurring) (ONCR) | payer MEDICARE, SELFPAY ==
[2022-05-05 15:00] VITALS: BP 148/68; PULSE 84; RESP 18; TEMP 36.6; O2SAT 98
[2022-05-05] MEDS: leuprolide 22.5 mg Kit IM (15:02)
== END 2022-05-25 23:59 | disposition home or self-care (01) ==
PROVIDERS: PCP Internal Medicine; Visit Provider Internal Medicine Hematology & Oncology
DX: C61 Malignant neoplasm of prostate (principal); C78.02 Secondary malignant neoplasm of left lung; Z90.2 Acquired absence of lung [part of]; C79.11 Secondary malignant neoplasm of bladder; R97.21 Rising PSA following treatment for malignant neoplasm of prostate; M47.892 Other spondylosis, cervical region; M13.812 Other specified arthritis, left shoulder; M13.811 Other specified arthritis, right shoulder; R53.1 Weakness; R53.0 Neoplastic (malignant) related fatigue; Z79.818 Long term (current) use of other agents affecting estrogen receptors and estrogen levels; Z79.899 Other long term (current) drug therapy; Z92.21 Personal history of antineoplastic chemotherapy
CPT/HCPCS: 96402; 99214; 99215; J9217

== ENCOUNTER 2022-08-03 11:48 | Oncology outpatient (recurring) (ONCR) | payer MEDICARE, SELFPAY ==
[2022-08-03 12:22] LABS: Basophils # 0.1 10^3/uL (0.0-0.1); Basophils % 0.7 %; Eosinophils # 0.1 10^3/uL (0.0-0.8); Eosinophils % 1.6 %; Hematocrit 47.6 % (42.0-52.0); Lymphocytes # 1.9 10^3/uL (0.8-4.8); Lymphocytes % 24.8 %; Mean Corpuscular HGB Conc 33.6 g/dL (30.0-36.0); Mean Corpuscular Hemoglobin 30.8 pg (28.0-34.0); Mean Corpuscular Volume 91.5 fl (80-94); Mean Platelet Volume 10.2 fL (7.4-10.4); Monocytes # 0.7 10^3/uL (0.2-0.9); Monocytes % 9.7 %; Neutrophils # 4.73 10^3/uL (1.8-7.7); Neutrophils % 62.8 %; Nucleated Red Blood Cells % 0 %; Platelet Count 205 10^3/cmm (130-400); Red Cell Distribution Width 11.9 % (12.1-15.1); White Blood Count 7.5 10^3/uL (4.0-10.0)
[2022-08-03 12:54] LABS: Alanine Aminotransferase 19 U/L (0-41); Albumin Level 4.2 g/dL (3.5-5.2); Alkaline Phosphatase 85 U/L (40-130); Anion Gap 16.3 (5-19); Aspartate Amino Transferase 21 U/L (0-40); Blood Urea Nitrogen 19 mg/dL (8-23); Calcium 9.1 mg/dL (8.5-10.5); Carbon Dioxide 24 mmol/L (22-29); Chloride 107 mmol/L (98-107); Globulin 2.2 g/dL (1.3-4.6); Glucose 93 mg/dL (65-115); Osmolality Calculated 298 mOsm/kg (285-295); Potassium 4.3 mmol/L (3.5-5.1); Sodium 143 mmol/L (136-145); Testosterone Total 2.5 ng/dL (193-740); Total Bilirubin 0.4 mg/dL (0.15-1.2); Total Protein 6.4 g/dL (6.6-8.7)
[2022-08-03] MEDS: leuprolide 22.5 mg Kit IM (14:38)
== END 2022-08-24 23:59 | disposition home or self-care (01) ==
PROVIDERS: Internal Medicine Medical Oncology; PCP Internal Medicine; Visit Provider Internal Medicine Hematology & Oncology
DX: C61 Malignant neoplasm of prostate; C78.01 Secondary malignant neoplasm of right lung; C78.02 Secondary malignant neoplasm of left lung; Z90.2 Acquired absence of lung [part of]; J43.9 Emphysema, unspecified; R23.2 Flushing; Z79.818 Long term (current) use of other agents affecting estrogen receptors and estrogen levels; Z79.899 Other long term (current) drug therapy; Z79.52 Long term (current) use of systemic steroids; Z87.891 Personal history of nicotine dependence
CPT/HCPCS: 36415; 80053; 84153; 84403; 85025; 96401; 99214; J9217

== ENCOUNTER 2022-11-18 09:00 | Oncology outpatient (recurring) (ONCR) | payer MEDICARE, SELFPAY ==
[2022-10-28 08:11] LABS: Basophils # 0.1 10^3/uL (0.0-0.1); Basophils % 0.8 %; Eosinophils # 0.2 10^3/uL (0.0-0.8); Eosinophils % 2.2 %; Hematocrit 50.5 % (42.0-52.0); Lymphocytes % 27.9 %; Mean Corpuscular HGB Conc 33.7 g/dL (30.0-36.0); Mean Corpuscular Hemoglobin 30.6 pg (28.0-34.0); Mean Platelet Volume 10.1 fL (7.4-10.4); Monocytes # 0.6 10^3/uL (0.2-0.9); Monocytes % 8.9 %; Neutrophils # 4.27 10^3/uL (1.8-7.7); Neutrophils % 59.8 %; Nucleated Red Blood Cells % 0 %; Platelet Count 223 10^3/cmm (130-400); Red Blood Count 5.55 10^6/uL (4.1-5.3); White Blood Count 7.2 10^3/uL (4.0-10.0)
[2022-10-28 08:38] LABS: Alanine Aminotransferase 23 U/L (0-41); Albumin Level 4.4 g/dL (3.5-5.2); Alkaline Phosphatase 91 U/L (40-130); Anion Gap 15.5 (5-19); Aspartate Amino Transferase 21 U/L (0-40); Blood Urea Nitrogen 20 mg/dL (8-23); Carbon Dioxide 26 mmol/L (22-29); Chloride 103 mmol/L (98-107); Globulin 2.3 g/dL (1.3-4.6); Glucose 113 mg/dL (65-115); Osmolality Calculated 293 mOsm/kg (285-295); Potassium 4.5 mmol/L (3.5-5.1); Sodium 140 mmol/L (136-145); Testosterone Total 2.5 ng/dL (193-740); Total Bilirubin 0.4 mg/dL (0.15-1.2); Total Protein 6.7 g/dL (6.6-8.7)
[2022-11-18] MEDS: lidocaine 1% INJ 20 mL MDV (mL) SUBCUT (09:12)
[2022-11-18] MEDS: goserelin acetate 10.8 mg Implant SUBCUT (09:30)
== END 2022-11-22 23:59 | disposition home or self-care (01) ==
PROVIDERS: PCP Internal Medicine; Visit Provider Internal Medicine Hematology & Oncology
DX: C61 Malignant neoplasm of prostate (principal); C78.01 Secondary malignant neoplasm of right lung; C78.02 Secondary malignant neoplasm of left lung; Z79.818 Long term (current) use of other agents affecting estrogen receptors and estrogen levels; Z79.899 Other long term (current) drug therapy
CPT/HCPCS: 36415; 80053; 84153; 84403; 85025; 96372; 96402; 99214; J9202

== ENCOUNTER → 2023-02-13 08:50 | Outpatient (BNVA) | payer MEDICARE, SELFPAY | PROVIDERS: PCP Internal Medicine; Visit Provider Nurse Practitioner Family | DX: C61 Malignant neoplasm of prostate (principal) | CPT/HCPCS: 99214 ==

== ENCOUNTER 2023-02-14 14:00 | Oncology outpatient (recurring) (ONCR) | payer MEDICARE, SELFPAY ==
[2023-02-13 09:24] LABS: Basophils # 0.1 10^3/uL (0.0-0.1); Eosinophils # 0.1 10^3/uL (0.0-0.8); Eosinophils % 1.6 %; Hematocrit 50.8 % (42.0-52.0); Hemoglobin 16.9 g/dL (11.7-16.6); Lymphocytes # 1.6 10^3/uL (0.8-4.8); Lymphocytes % 23.5 %; Mean Corpuscular HGB Conc 33.3 g/dL (30.0-36.0); Mean Corpuscular Hemoglobin 30.6 pg (28.0-34.0); Mean Corpuscular Volume 91.9 fl (80-94); Mean Platelet Volume 10.3 fL (7.4-10.4); Monocytes # 0.6 10^3/uL (0.2-0.9); Monocytes % 9.1 %; Neutrophils # 4.38 10^3/uL (1.8-7.7); Neutrophils % 64.5 %; Nucleated Red Blood Cells % 0 %; Platelet Count 212 10^3/cmm (130-400); Red Blood Count 5.53 10^6/uL (4.1-5.3); Red Cell Distribution Width 12.1 % (12.1-15.1); White Blood Count 6.8 10^3/uL (4.0-10.0)
[2023-02-13 09:48] LABS: Alanine Aminotransferase 20 U/L (0-41); Albumin Level 4.3 g/dL (3.5-5.2); Alkaline Phosphatase 90 U/L (40-130); Anion Gap 15.5 (5-19); Aspartate Amino Transferase 20 U/L (0-40); Blood Urea Nitrogen 17 mg/dL (8-23); Calcium 8.8 mg/dL (8.5-10.5); Carbon Dioxide 25 mmol/L (22-29); Chloride 105 mmol/L (98-107); Globulin 2.2 g/dL (1.3-4.6); Glucose 107 mg/dL (65-115); Osmolality Calculated 294 mOsm/kg (285-295); Potassium 4.5 mmol/L (3.5-5.1); Sodium 141 mmol/L (136-145); Total Bilirubin 0.4 mg/dL (0.15-1.2); Total Protein 6.5 g/dL (6.6-8.7)
[2023-02-14] MEDS: lidocaine 1% INJ 20 mL MDV (mL) SUBCUT (14:06)
[2023-02-14] MEDS: goserelin acetate 10.8 mg Implant SUBCUT (14:21)
[2023-02-14 14:25] VITALS: BP 137/76; PULSE 70; RESP 18; TEMP 36.2; O2SAT 95
== END 2023-02-22 23:59 | disposition home or self-care (01) ==
PROVIDERS: PCP Internal Medicine; Visit Provider Internal Medicine Hematology & Oncology
DX: C61 Malignant neoplasm of prostate (principal)
CPT/HCPCS: 36415; 80053; 84153; 85025; 96402; 99214; J9202

== ENCOUNTER 2023-05-09 12:05 | Oncology outpatient (recurring) (ONCR) | payer MEDICARE, SELFPAY ==
[2023-05-09 12:12] VITALS: BP 144/94; PULSE 77; RESP 18; TEMP 36.8; O2SAT 96
[2023-05-09 12:21] LABS: Basophils # 0.1 10^3/uL (0.0-0.1); Basophils % 0.8 %; Eosinophils # 0.1 10^3/uL (0.0-0.8); Eosinophils % 1.5 %; Hematocrit 49.5 % (42.0-52.0); Lymphocytes # 2.1 10^3/uL (0.8-4.8); Lymphocytes % 25.7 %; Mean Corpuscular HGB Conc 34.3 g/dL (30.0-36.0); Mean Corpuscular Volume 90.3 fl (80-94); Mean Platelet Volume 10.2 fL (7.4-10.4); Monocytes # 0.8 10^3/uL (0.2-0.9); Monocytes % 9.9 %; Neutrophils # 4.93 10^3/uL (1.8-7.7); Neutrophils % 61.8 %; Nucleated Red Blood Cells % 0 %; Platelet Count 208 10^3/cmm (130-400); Red Blood Count 5.48 10^6/uL (4.1-5.3); Red Cell Distribution Width 11.9 % (12.1-15.1)
[2023-05-09 13:04] LABS: Alanine Aminotransferase 23 U/L (0-41); Albumin Level 4.5 g/dL (3.5-5.2); Alkaline Phosphatase 102 U/L (40-130); Blood Urea Nitrogen 22 mg/dL (8-23); Calcium 9.2 mg/dL (8.5-10.5); Carbon Dioxide 27 mmol/L (22-29); Chloride 105 mmol/L (98-107); Globulin 2.3 g/dL (1.3-4.6); Glucose 107 mg/dL (65-115); Osmolality Calculated 298 mOsm/kg (285-295); Sodium 142 mmol/L (136-145); Testosterone Total 2.5 ng/dL (193-740); Total Bilirubin 0.5 mg/dL (0.15-1.2); Total Protein 6.8 g/dL (6.6-8.7)
[2023-05-09 13:12] LABS: Aspartate Amino Transferase 5 U/L (0-40)
== END 2023-05-25 23:59 | disposition home or self-care (01) ==
PROVIDERS: Nurse Practitioner Family; PCP Internal Medicine; Visit Provider Internal Medicine Medical Oncology
DX: C61 Malignant neoplasm of prostate (principal); C78.01 Secondary malignant neoplasm of right lung; C78.02 Secondary malignant neoplasm of left lung; Z90.2 Acquired absence of lung [part of]; J43.9 Emphysema, unspecified; Z79.52 Long term (current) use of systemic steroids; Z79.818 Long term (current) use of other agents affecting estrogen receptors and estrogen levels; Z79.899 Other long term (current) drug therapy; Z87.891 Personal history of nicotine dependence; E66.9 Obesity, unspecified; Z68.33 Body mass index [BMI] 33.0-33.9, adult
CPT/HCPCS: 36415; 80053; 84153; 84403; 85025; 99214

== ENCOUNTER 2023-06-06 08:48 | Oncology outpatient (recurring) (ONCR) | payer MEDICARE, SELFPAY ==
[2023-05-30 08:39] VITALS: BP 158/99; PULSE 76; RESP 18; TEMP 35.8; O2SAT 95
[2023-05-30 08:53] LABS: Basophils # 0.1 10^3/uL (0.0-0.1); Basophils % 0.7 %; Eosinophils # 0.2 10^3/uL (0.0-0.8); Eosinophils % 2.5 %; Hematocrit 48.2 % (37-53); Lymphocytes # 1.8 10^3/uL (0.8-4.8); Lymphocytes % 26.1 %; Mean Corpuscular HGB Conc 34.4 g/dL (30-55); Mean Corpuscular Hemoglobin 31.4 pg (27-33); Mean Corpuscular Volume 91.3 fl (82-101); Mean Platelet Volume 10.2 fL (7.4-10.4); Monocytes # 0.7 10^3/uL (0.2-0.9); Monocytes % 10.1 %; Neutrophils # 4.02 10^3/uL (1.8-7.7); Neutrophils % 60.2 %; Nucleated Red Blood Cells % 0 %; Platelet Count 218 10^3/cmm (157-399); Red Blood Count 5.28 10^6/uL (3.85-5.65); Red Cell Distribution Width 11.9 % (12.1-15.1)
[2023-05-30 09:26] LABS: Alanine Aminotransferase 18 U/L (0-41); Albumin Level 4.4 g/dL (3.5-5.2); Alkaline Phosphatase 117 U/L (40-130); Anion Gap 14.7 (5-19); Aspartate Amino Transferase 21 U/L (0-40); Blood Urea Nitrogen 28 mg/dL (8-23); Calcium 9.3 mg/dL (8.5-10.5); Carbon Dioxide 24 mmol/L (22-29); Chloride 107 mmol/L (98-107); Globulin 2.1 g/dL (1.3-4.6); Glucose 120 mg/dL (65-115); Osmolality Calculated 299 mOsm/kg (285-295); Potassium 4.7 mmol/L (3.5-5.1); Sodium 141 mmol/L (136-145); Testosterone Total 2.5 ng/dL (193-740); Total Bilirubin 0.4 mg/dL (0.15-1.2); Total Protein 6.5 g/dL (6.6-8.7)
[2023-06-06 09:47] VITALS: BP 175/82; PULSE 67; RESP 18; TEMP 36.3; O2SAT 96
[2023-06-06 09:59] LABS: Basophils % 0.6 %; Eosinophils # 0.1 10^3/uL (0.0-0.8); Hematocrit 47.4 % (37-53); Lymphocytes # 1.6 10^3/uL (0.8-4.8); Lymphocytes % 23.4 %; Mean Corpuscular HGB Conc 34.4 g/dL (30-55); Mean Corpuscular Hemoglobin 31.2 pg (27-33); Mean Corpuscular Volume 90.8 fl (82-101); Monocytes # 0.6 10^3/uL (0.2-0.9); Monocytes % 9.3 %; Neutrophils # 4.42 10^3/uL (1.8-7.7); Nucleated Red Blood Cells % 0 %; Platelet Count 207 10^3/cmm (157-399); Red Blood Count 5.22 10^6/uL (3.85-5.65); Red Cell Distribution Width 11.9 % (12.1-15.1); White Blood Count 6.91 10^3/uL (3.29-11.43)
== END 2023-06-24 23:59 | disposition home or self-care (01) ==
PROVIDERS: Nurse Practitioner Family; PCP Internal Medicine; Visit Provider Internal Medicine Medical Oncology
DX: C61 Malignant neoplasm of prostate (principal); C79.11 Secondary malignant neoplasm of bladder; F41.9 Anxiety disorder, unspecified; G47.00 Insomnia, unspecified
CPT/HCPCS: 36415; 80053; 84153; 84403; 85025; 99214; 99215

== ENCOUNTER → 2023-08-07 13:38 | Outpatient (BNVA) | payer MEDICARE, SELFPAY | PROVIDERS: PCP Internal Medicine; Visit Provider Dermatology | DX: D48.5 Neoplasm of uncertain behavior of skin (principal); L73.8 Other specified follicular disorders; L82.1 Other seborrheic keratosis; L57.0 Actinic keratosis; L81.4 Other melanin hyperpigmentation; L57.8 Other skin changes due to chronic exposure to nonionizing radiation; Z85.828 Personal history of other malignant neoplasm of skin | CPT/HCPCS: 11102; 17000; 69100; 99203 ==

== ENCOUNTER → 2023-10-03 07:57 | Outpatient (BNVA) | payer MEDICARE, SELFPAY | PROVIDERS: PCP Internal Medicine; Visit Provider Dermatology | DX: C44.319 Basal cell carcinoma of skin of other parts of face (principal) | CPT/HCPCS: 12052; 17311 ==

== ENCOUNTER → 2023-10-10 07:43 | Outpatient (BNVA) | payer MEDICARE, SELFPAY | PROVIDERS: PCP Internal Medicine; Visit Provider Dermatology | DX: L57.0 Actinic keratosis (principal); Z48.02 Encounter for removal of sutures | CPT/HCPCS: 17000; 99212 ==

== ENCOUNTER → 2023-12-13 08:42 | Outpatient (BNVA) | payer MEDICARE, SELFPAY | PROVIDERS: PCP Internal Medicine; Visit Provider Nurse Practitioner Family | DX: L57.0 Actinic keratosis (principal); L73.8 Other specified follicular disorders; L81.4 Other melanin hyperpigmentation; L57.8 Other skin changes due to chronic exposure to nonionizing radiation; Z85.828 Personal history of other malignant neoplasm of skin | CPT/HCPCS: 17004; 99213 ==

== ENCOUNTER → 2024-04-15 09:35 | Outpatient (BNVA) | payer MEDICARE, SELFPAY | PROVIDERS: PCP Internal Medicine; Visit Provider Nurse Practitioner Family | DX: L57.0 Actinic keratosis (principal); L73.8 Other specified follicular disorders; L82.1 Other seborrheic keratosis; L81.4 Other melanin hyperpigmentation | CPT/HCPCS: 11102; 17000; 99213 ==

== ENCOUNTER → 2024-05-06 08:52 | Outpatient (BNVA) | payer MEDICARE, SELFPAY | PROVIDERS: PCP Internal Medicine; Visit Provider Dermatology | DX: C44.619 Basal cell carcinoma of skin of left upper limb, including shoulder (principal); C44.612 Basal cell carcinoma of skin of right upper limb, including shoulder; Z85.828 Personal history of other malignant neoplasm of skin | CPT/HCPCS: 13121; 17313; 99214 ==

== ENCOUNTER → 2024-09-24 14:20 | Outpatient (BNVA) | payer MEDICARE, SELFPAY | PROVIDERS: PCP Internal Medicine; Visit Provider Nurse Practitioner Family | DX: L57.8 Other skin changes due to chronic exposure to nonionizing radiation (principal); L73.8 Other specified follicular disorders; L81.4 Other melanin hyperpigmentation; Z08 Encounter for follow-up examination after completed treatment for malignant neoplasm; Z85.828 Personal history of other malignant neoplasm of skin; L82.0 Inflamed seborrheic keratosis; L29.89 Other pruritus; L53.8 Other specified erythematous conditions; L57.0 Actinic keratosis | CPT/HCPCS: 17000; 17110; 99213 ==

== ENCOUNTER → 2025-03-24 08:00 | Outpatient (BNVA) | payer MEDICARE, SELFPAY | PROVIDERS: PCP Internal Medicine; Visit Provider Nurse Practitioner Family | DX: D48.5 Neoplasm of uncertain behavior of skin (principal); L57.8 Other skin changes due to chronic exposure to nonionizing radiation; L81.4 Other melanin hyperpigmentation; Z08 Encounter for follow-up examination after completed treatment for malignant neoplasm; Z85.828 Personal history of other malignant neoplasm of skin; L57.0 Actinic keratosis | CPT/HCPCS: 11102; 17000; 99213 ==

== ENCOUNTER → 2025-08-05 08:23 | Outpatient (BNVA) | payer MEDICARE, SELFPAY | PROVIDERS: PCP Internal Medicine; Visit Provider Dermatology | DX: L57.8 Other skin changes due to chronic exposure to nonionizing radiation (principal); L81.4 Other melanin hyperpigmentation; Z08 Encounter for follow-up examination after completed treatment for malignant neoplasm; Z85.828 Personal history of other malignant neoplasm of skin; D48.5 Neoplasm of uncertain behavior of skin; L57.0 Actinic keratosis | CPT/HCPCS: 11102; 17004; 17272; 99213 ==